=== PATIENT | female | born 1965 | race Caucasian/White ===

== ENCOUNTER → 2018-09-07 16:45 | Outpatient (CLI) | payer OTHER, SELFPAY ==
[2018-09-12 11:14] LABS: HPV Reflexed? NOT INDICATED
== END ==
PROVIDERS: Visit Provider Family Medicine
DX: Z12.4 Encounter for screening for malignant neoplasm of cervix (principal)
CPT/HCPCS: 88175; G0145

== ENCOUNTER → 2018-11-10 09:05 | Outpatient (CLI) | payer OTHER, SELFPAY ==
[2018-11-10 12:16] LABS: Absolute Neutrophil Count 4.9 X10^3/uL (2.0-7.7); Basophil# 0.03 X10^3/uL; Basophil% 0.4 % (0-1); Eosinophil# 0.13 X10^3/uL; Eosinophils% 1.6 % (0-5); Hematocrit 40.8 % (37-47); Mean Corp Hgb Conc 31.9 g/gl (32-36); Mean Corpuscular Hgb 28.1 pg (27.0-32.0); Mean Corpuscular Volume 88.3 fL (81-99); Mean Platelet Vol. 10.2 fl (6.2-12.0); Monocyte# 0.54 X10^3/uL; Monocyte% 6.8 % (0-10); Neutrophil # 4.88 X10^3/uL (2.7-7.7); Neutrophil % 61.1 % (47-70); Platelet Count 323 K/mm3 (150-450); RBC Distribution Width CV 13.1 % (11.6-14.6); RBC Distribution Width SD 42.1 fl (35.1-43.9); Red Blood Count 4.62 M/mm3 (4.2-5.4)
[2018-11-10 12:24] LABS: POSITIVE COUNT NO; POSITIVE DIFFERENTIAL NO; POSITIVE MORPHOLOGY NO
[2018-11-10 12:33] LABS: Vitamin D,25 Hydroxy 78.2 ng/mL (29.95-100.01)
[2018-11-10 12:38] LABS: AST(SGOT) 14 U/L (15-37); Alanine Aminotransfer ALT/SGPT 18 U/L (13-56); Albumin, Serum 3.5 g/dL (3.2-5.0); Alkaline Phosphatase 49 U/L (45-117); Anion Gap 9 (5-15); BUN 16 mg/dL (7-18); BUN/Creat Ratio 16.2 RATIO (10-20); Chloride 102 mmol/L (98-107); Cholesterol 214 mg/dL (200); Creatinine, Serum 0.99 mg/dL (0.55-1.02); EST Glomerular Filtration Rate 63 mL/min (>60); Est Glom Filt Rate - Afr Amer 76 mL/min (>60); Globulin 3.5 g/dL (2.2-4.2); Glucose 82 mg/dL (74-106); High Density Lipoprotein 82 mg/dL; Potassium 4.3 mmol/L (3.5-5.1); Sodium Level 140 mmol/L (136-145); T4 Free Direct 0.99 ng/dL (0.76-1.46); Thyroid Stim Hormone (TSH) 7.93 uIU/mL (0.358-3.74); Triglycerides 100 mg/dL; Very Low Density Lipoprotein 20 mg/dL (5-40)
== END ==
PROVIDERS: Visit Provider Family Medicine
DX: Z00.00 Encounter for general adult medical examination without abnormal findings (principal); E03.9 Hypothyroidism, unspecified; E78.5 Hyperlipidemia, unspecified; E55.9 Vitamin D deficiency, unspecified; R53.83 Other fatigue; Z51.81 Encounter for therapeutic drug level monitoring
CPT/HCPCS: 36415; 80053; 80061; 82306; 84439; 84443; 85025

== ENCOUNTER → 2019-03-05 | Outpatient (CLI) | payer OTHER, SELFPAY ==
[2019-03-05 16:03] LABS: Free T3 2.4 pg/mL (2.18-3.98); T4 Free Direct 1.23 ng/dL (0.76-1.46); Thyroid Stim Hormone (TSH) 1.23 uIU/mL (0.358-3.74)
== END | disposition home or self-care (01) ==
LOC: LAB.FUTURE 11:14
PROVIDERS: Family Provider Family Medicine; PCP Family Medicine; Visit Provider Family Medicine
DX: E03.9 Hypothyroidism, unspecified (principal)
CPT/HCPCS: 36415; 84439; 84443; 84481

== ENCOUNTER → 2019-05-28 | Outpatient (CLI) | payer OTHER, SELFPAY ==
[2019-05-28 12:51] LABS: Free T3 2.2 pg/mL (2.18-3.98); T4 Free Direct 0.99 ng/dL (0.76-1.46); Thyroid Stim Hormone (TSH) 7.47 uIU/mL (0.358-3.74)
== END | disposition home or self-care (01) ==
LOC: LAB.FUTURE 10:00
PROVIDERS: Family Provider Family Medicine; PCP Family Medicine; Visit Provider Family Medicine
DX: E03.9 Hypothyroidism, unspecified (principal)
CPT/HCPCS: 36415; 84439; 84443; 84481

== ENCOUNTER → 2019-07-25 | Outpatient (CLI) | payer OTHER, SELFPAY ==
[2019-07-25 18:04] LABS: Free T3 2.4 pg/mL (2.18-3.98); Thyroid Stim Hormone (TSH) 2.62 uIU/mL (0.358-3.74)
== END | disposition home or self-care (01) ==
LOC: LAB.FUTURE 15:54
PROVIDERS: Family Provider Family Medicine; PCP Family Medicine; Visit Provider Family Medicine
DX: E03.9 Hypothyroidism, unspecified (principal)
CPT/HCPCS: 36415; 84439; 84443; 84481

== ENCOUNTER → 2019-08-08 | Outpatient (CLI) | payer OTHER, SELFPAY | END | disposition home or self-care (01) | LOC: PSN 14:03 | PROVIDERS: Family Provider Family Medicine; PCP Family Medicine; Referring Provider Family Medicine; Visit Provider Family Medicine | DX: I47.9 Paroxysmal tachycardia, unspecified (principal) | CPT/HCPCS: 93225; 93226 ==

== ENCOUNTER → 2019-08-17 | Outpatient (CLI) | payer OTHER, SELFPAY ==
--- NOTE | 2019-08-17 13:42 | ECHOD_ITS ---
Reason For Study: Tachycardia Procedure This was a 2D Doppler, Color Flow transthoracic echocardiogram. Exam performed in department. Left Ventricle Normal size and thickness. The estimated ejection fraction is 65 %. Normal diastology for age. No regional wall motion abnormalities noted. Right Ventricle Normal size and thickness. Normal systolic function. Atria Normal left atrium. Normal right atrium. Normal atrial septum. Mitral Valve The mitral valve is structurally normal. No prolapse or stenosis seen. Trivial mitral valve insufficiency. Tricuspid Valve Normal tricuspid valve. Trivial tricuspid valve insufficiency. Right ventricular systolic pressure estimated to be 25 mmHg. Aortic Valve Normal aortic valve. Trisinus/trileaflet aortic valve. Pulmonic Valve Normal pulmonic valve. Great Vessels Normal aortic root. Normal arch. Normal inferior vena cava. Inferior vena cava collapse with sniff. Pericardium/Pleural No pericardial effusion. MMode/2D Measurements & Calculations LVIDd: 3.9 cm IVSd: 0.94 cm Ao root diam: 3.3 cm LVIDs: 2.1 cm LVPWd: 0.88 cm LA dimension: 3.5 cm RVDd: 3.6 cm FS: 45.4 % LAV(MOD-bp): 37.6 ml LA A4 area: 15.4 cm2 RA A4 area: 12.2 cm2 LAV(MOD-bp) Indexed: 20.7 ml/m2 LAV(MOD-sp2): 36.6 ml LAV(MOD-sp4): 39.1 ml Time Measurements MV dec time: 0.25 sec Doppler Measurements & Calculations MV E max jose miguel: 87.4 cm/sec Lat Peak E' Jose Miguel: 14.1 cm/sec Med Peak E' Jose Miguel: 12.3 cm/sec MV A max jose miguel: 66.3 cm/sec E/E' lat: 6.2 E/E' med: 7.1 MV E/A: 1.3 MV V2 max: 91.5 cm/sec MV P1/2t max jose miguel: 93.4 cm/sec Ao V2 max: 119.4 cm/sec MV max P.3 mmHg MV P1/2t: 107.7 msec Ao max P.7 mmHg MV V2 mean: 56.5 cm/sec MV dec slope: 254.0 cm/sec2 Ao V2 mean: 79.5 cm/sec MV mean P.5 mmHg MVA(P1/2t): 2.0 cm2 Ao mean P.8 mmHg MV V2 VTI: 27.5 cm Ao V2 VTI: 21.8 cm LV V1 max: 102.5 cm/sec PA V2 max: 119.4 cm/sec TR max jose miguel: 219.0 cm/sec LV V1 max P.2 mmHg TR max P.2 mmHg LV V1 mean P.4 mmHg LV V1 mean: 73.6 cm/sec LV V1 VTI: 22.7 cm Interpretation Summary The estimated ejection fraction is 65 %. Normal diastology for age. Trivial mitral valve insufficiency. Trivial tricuspid valve insufficiency. Right ventricular systolic pressure estimated to be 25 mmHg. There is no comparison study available. Ordering Physician: Tova Echevarria Referring Physician: Tova Echevarria Performed By: Brady Durant RCS
== END | disposition home or self-care (01) ==
LOC: CVS 13:39
PROVIDERS: Family Provider Family Medicine; PCP Family Medicine; Referring Provider Family Medicine; Visit Provider Family Medicine
DX: I47.9 Paroxysmal tachycardia, unspecified (principal)
CPT/HCPCS: 93306

== ENCOUNTER → 2019-10-16 13:32 | Outpatient (CLI) | payer OTHER, SELFPAY ==
[2019-09-26 10:48] VITALS: BMI 26.4
--- NOTE | 2019-10-16 13:33 | STEWCON_ITS ---
Reason For Study: PALPITATIONS Stress Results Protocol: Pro Protocol WITH DEFINITY Maximum Predicted HR: 168 bpm Target HR: 143 bpm % Maximum Predicted HR: 102 % DurationHeart Rate Stage (mm:ss) (bpm) BP Comment BASELINE 72 122/901 CC DEFINITY STAGE 1 3:00 116 142/86 STAGE 2 3:00 126 142/74SLIGHT SOB STAGE 3 3:00 153 158/70 STAGE 4 1:00 171 / 1 CC DEFINITY RECOVERY 84 118/84 Stress Duration: 10:00 mm:ss Maximum Stress HR: 171 bpm METS: 13 Baseline Echocardiogram Findings Stress Echo Wall motion Data Resting WM Intermediate WM Stress WM Resting Wall Motion Wall Motion Stress All segments Normal. All segments Hyperkinetic. Ejection Fraction 60 %. Ejection Fraction 70 %. Stress Results Heart rate response: Appropriate Blood pressure response to exercise: Resting hypertension-appropriate response Arrhythmias: Rare PVC during recovery Functional capacity: Good Stopped secondary to: Dyspnea. EKG Data The baseline ECG displays normal sinus rhythm. Peak exercise ECG: No obvious ECG changes. Symptoms with Stress No complaint of chest discomfort during exercise or recovery. Interpretation Summary Contrast injection performed Negative (adequate) stress echocardiogram Ordering Physician: Greyson Jacobson Referring Physician: Greyson Jacobson Performed By: Yoli Brandon RDCS
== END ==
PROVIDERS: Family Provider Family Medicine; PCP Family Medicine; Referring Provider Internal Medicine Cardiovascular Disease; Visit Provider Internal Medicine Cardiovascular Disease
DX: R00.2 Palpitations (principal); E03.9 Hypothyroidism, unspecified; I47.1 Supraventricular tachycardia
CPT/HCPCS: 93017; 93350; Q9957; A4216; C8928

== ENCOUNTER → 2019-10-29 10:07 | Outpatient (CLI) | payer OTHER, SELFPAY ==
[2019-09-26 10:48] VITALS: BMI 26.4
[2019-10-29 12:16] LABS: Absolute Lymphocyte Count 1.64 X10^3/uL (0.83-4.51); Absolute Neutrophil Count 3.5 X10^3/uL (2.0-7.7); Basophil# 0.03 X10^3/uL; Basophil% 0.5 % (0-1); Eosinophil# 0.07 X10^3/uL; Eosinophils% 1.2 % (0-5); Hematocrit 40.9 % (37-47); Hemoglobin 13.1 g/dL (12.0-15.0); Lymphocyte # 1.64 X10^3/ul (4.0); Lymphocyte % 29.1 % (19-41); Mean Corpuscular Hgb 28.4 pg (27.0-32.0); Mean Corpuscular Volume 88.7 fL (81-99); Mean Platelet Vol. 10.4 fl (6.2-12.0); Monocyte# 0.38 X10^3/uL; Monocyte% 6.7 % (0-10); NRBC Flagged by Analyzer 0 % (0-5); Neutrophil # 3.51 X10^3/uL (2.7-7.7); Neutrophil % 62.5 % (47-70); Platelet Count 293 K/mm3 (150-450); RBC Distribution Width CV 12.6 % (11.6-14.6); Red Blood Count 4.61 M/mm3 (4.2-5.4); White Blood Count 5.6 K/mm3 (4.4-11.0)
[2019-10-29 12:45] LABS: AST(SGOT) 16 U/L (15-37); Alanine Aminotransfer ALT/SGPT 17 U/L (13-56); Albumin, Serum 3.6 g/dL (3.2-5.0); Alkaline Phosphatase 53 U/L (45-117); Anion Gap 4 (5-15); BUN 12 mg/dL (7-18); BUN/Creat Ratio 11.5 RATIO (10-20); Bilirubin, Direct 0.07 mg/dL (0.00-0.30); Calcium,Total 8.7 mg/dL (8.5-10.1); Chloride 101 mmol/L (98-107); Cholesterol 201 mg/dL (200); Creatinine, Serum 1.04 mg/dL (0.55-1.02); EST Glomerular Filtration Rate 59 mL/min (>60); Est Glom Filt Rate - Afr Amer 71 mL/min (>60); Free T3 2.6 pg/mL (2.18-3.98); Globulin 3.7 g/dL (2.2-4.2); Glucose 88 mg/dL (74-106); High Density Lipoprotein 81 mg/dL; Potassium 4.3 mmol/L (3.5-5.1); Protein, Total 7.3 g/dL (6.4-8.2); Sodium Level 133 mmol/L (136-145); T4 Free Direct 1.16 ng/dL (0.76-1.46); Thyroid Stim Hormone (TSH) 1.93 uIU/mL (0.358-3.74); Triglycerides 121 mg/dL; Very Low Density Lipoprotein 24 mg/dL (5-40)
== END ==
PROVIDERS: Family Provider Family Medicine; PCP Family Medicine; Visit Provider Internal Medicine Cardiovascular Disease
DX: E78.00 Pure hypercholesterolemia, unspecified (principal); R00.2 Palpitations; I47.1 Supraventricular tachycardia; E03.9 Hypothyroidism, unspecified
CPT/HCPCS: 36415; 80048; 80061; 80076; 83735; 84439; 84443; 84481; 85025

== ENCOUNTER → 2019-12-10 09:55 | Outpatient (CLI) | payer OTHER, SELFPAY ==
[2019-11-15 15:24] VITALS: BMI 26.8
[2019-12-10 12:57] LABS: Anion Gap 4 (5-15); BUN 12 mg/dL (7-18); BUN/Creat Ratio 12.1 RATIO (10-20); Calcium,Total 8.9 mg/dL (8.5-10.1); Chloride 102 mmol/L (98-107); Creatinine, Serum 0.99 mg/dL (0.55-1.02); EST Glomerular Filtration Rate 63 mL/min (>60); Est Glom Filt Rate - Afr Amer 76 mL/min (>60); Glucose 94 mg/dL (74-106); Potassium 3.7 mmol/L (3.5-5.1); Sodium Level 135 mmol/L (136-145)
== END ==
PROVIDERS: PCP Family Medicine; Visit Provider Internal Medicine Cardiovascular Disease
DX: I47.1 Supraventricular tachycardia (principal); R00.2 Palpitations
CPT/HCPCS: 36415; 80048

== ENCOUNTER → 2023-02-11 | Outpatient (CLI) | payer OTHER, SELFPAY ==
[2023-02-18 20:54] LABS: HPV Reflexed? NOT INDICATED
== END | disposition home or self-care (01) ==
PROVIDERS: PCP Family Medicine; Visit Provider Family Medicine
DX: Z12.4 Encounter for screening for malignant neoplasm of cervix (principal)
CPT/HCPCS: 88175; G0145

== ENCOUNTER → 2023-04-07 | Outpatient (CLI) | payer OTHER, SELFPAY ==
--- NOTE | 2023-04-07 15:35 | BI_ITS ---
MAMMOGRAPHY - BILATERAL SCREENING REASON FOR EXAM: Female, 57 years old. Routine annual screening examination. PERTINENT HISTORY: Grandmother with breast cancer. TECHNIQUE: Digital bilateral breast dora (3D mammographic acquisition) in the CC and MLO projections. 2-D mediolateral oblique (MLO) and craniocaudad (CC) views of both breasts were obtained. CAD: Full Field Digital Mammography with Computer Added Detection was performed. COMPARISON: Screening mammogram from 06/13/2017, 05/14/2016. FINDINGS: Breast Composition: The breasts are heterogeneously dense, which may obscure small masses. There are no dominant masses or suspicious calcifications. Stable inverted left nipple. No other significant abnormalities are identified. There has been no significant change since the prior study. BI/SCRN MAMM (CAD)W/DORA BILAT IMPRESSION: Negative screening mammogram. Examination is stable since June 13, 2017. Annual followup mammogram recommended. (A) ASSESSMENT CATEGORY: BIRADS Category 2: Benign. A letter regarding these results will be sent to the patient by the facility within 30 days. Approximately 10% of breast cancers are not detected by mammography. A normal mammogram should not delay biopsy of a clinically suspicious abnormality. Electronically Signed: Benigno Goldman DO at 15:16 EDT ,
== END | disposition home or self-care (01) ==
PROVIDERS: PCP Family Medicine; Referring Provider Family Medicine; Visit Provider Family Medicine
DX: Z12.31 Encounter for screening mammogram for malignant neoplasm of breast (principal)
CPT/HCPCS: 77063; 77067

== ENCOUNTER → 2023-05-28 | Outpatient (CLI) | payer OTHER, SELFPAY ==
[2023-05-28 09:12] LABS: Free T3 2.5 pg/mL (2.18-3.98); T4 Free Direct 1.05 ng/dL (0.76-1.46); Thyroid Stim Hormone (TSH) 6.96 uIU/mL (0.358-3.74)
== END | disposition home or self-care (01) ==
LOC: LAB 07:39
PROVIDERS: PCP Family Medicine; Referring Provider Family Medicine; Visit Provider Family Medicine
DX: E03.9 Hypothyroidism, unspecified (principal)
CPT/HCPCS: 36415; 84439; 84443; 84481

== ENCOUNTER → 2023-09-05 | Outpatient (CLI) | payer OTHER, SELFPAY ==
[2023-09-05 13:38] LABS: Free T3 2.3 pg/mL (2.18-3.98); T4 Free Direct 1.03 ng/dL (0.76-1.46); Thyroid Stim Hormone (TSH) 2.66 uIU/mL (0.358-3.74)
== END | disposition home or self-care (01) ==
LOC: LAB 12:51
PROVIDERS: PCP Family Medicine; Referring Provider Family Medicine; Visit Provider Family Medicine
DX: E03.9 Hypothyroidism, unspecified (principal)
CPT/HCPCS: 36415; 84439; 84443; 84481

== ENCOUNTER 2023-12-26 17:52 | Outpatient (RCR) | payer OTHER, SELFPAY ==
--- NOTE | 2023-12-26 19:38 | HP.PTEVAL ---
Patient's Visit Information Visit Information Visit Information: DEBBIE BELCHER is a 58 year old F referred to Physical Therapy by Dr. Tito Reyna DO with a diagnosis of OTHER SHOULDER LESION ,RIGHT SHOULDER. Date of Evaluation: 12/26/23 Physical Therapist: Abdullahi Lerner, PT, Cert MDT, OCS Visit Plan Frequency: 2x /Week Duration: 4 Weeks Plan: PT INTERVTIONS RTC/SCAPULAR STRENGTHENING ,ECCENTRICS RTC ,POSTURAL EX'S AND MODALTIES FOR PAIN Subjective Subjective: This 58 y/o female presents to physical therapy with right shoulder pain. Patient has had shoulder pain since Trae doing planks. Symptoms progressively worse with general activities overuse. Initially seen family DR recommended naproxen .Seen DR Reyna recommended PT no diagnostics . Patient located pain lateral deltoid described as ache adn sore. Symptoms worse daily activities ,OH activities lifting reaching back. Alleviating factors rest . Denies parestehesia/tingling-. Patient condition affects QOL and function. Patient goals to decrease pain. SOCIAL: VOCATION: [employer] Pain Right Shoulder: Pain Intensity (Out of 10): 4 Pain Intensity Range: 10 Objective Objective: POSTURE: mild forward posture PALPATION: tender AC joint lateral NEURO: denies paresthesia/tinging ,reflexes C5-6-7 3/3 AROM: right shoulder flexion 140 degrees ,abduction 130 degrees ,ER 90 , IR L1 MMT: ( peak force) infraspinatus 9.8 ,subscapularis 15.7 ,anterior deltoid 5.4 ,8.8 5.4 Special Tests R Shoulder Lift Off Test - Subscapular Tear: Negative R Shoulder Drop Sign - IS Test: Negative R Shoulder Empty Can - SS: Positive R Shoulder Belly Press - SupScap: Negative R Shoulder Neer - Impingement: Positive R Shoulder Moore Darius - Impingement: Positive R Shoulder Speeds Test - Labrum/Biceps: Negative R Shoulder Shrug Sign - OA/Adhesive Capsulitis: Negative Balance/Special Test Scores Quick DASH Score: 38.6350 Goals Goal 1:: Patient to be I with HEP for shoulder Goal Time Frame: 4-6 Weeks Goal 2:: Patient to improve AROM shoulder flexion and abduction by 160 degrees for ADLS and housework tasks Goal Time Frame: 4-6 Weeks Goal 3:: Patient to demonstrate 70% improvement with improved function and less pain Goal Time Frame: 4-6 Weeks Goal 4:: Patient to improve peak force RTC and deltoid y 10 # to improve strength and function Goal Time Frame: 4-6 Weeks Goal 5:: Patient to improve quick dash by 5 points or > to improve QOL and function Goal Time Frame: 4-6 Weeks Rehabilitation Potential Physical Therapy Diagnosis: Patient has right shoulder tendonitis /tendinopathy with pain with motion ,weakness RTC , impairs function and activities above 90 degrees for housework tasks thus benefit from skilled PT Rehabilitation Potential: Good Anticipated Interventions Patient/Client Instruction: Educate patient on: Condition and Plan of Care For the Purpose of:: To decrease pain, To increase ROM, To improve muscle performance and motor function, To improve ability to perform ADL's, To increase tolerance to activity/condition/position, To improve performance and independence with ADL's, To improve ability of physical actions for home/community/work/leisure, To improve health of tissue, To decrease soft tissue restriction, To increase flexibility/ROM, To reduce risk of recurrence and To prevent re-injury Therapeutic Exercise to Include: Strength training, Postural training, Flexibilty training, Active ROM and Scapular Strength/Stabilization Comment: RTC For the Purpose of:: To decrease pain, To increase ROM, To improve muscle performance and motor function, To improve ability to perform ADL's, To increase tolerance to activity/condition/position, To improve ability of physical actions for home/community/work/leisure, To improve health of tissue, To decrease soft tissue restriction, To increase flexibility/ROM, To prevent re-injury and To improve tolerance to ADL's TENS: Yes IF ES: Yes Cryotherapy (ice pack, ice massage): Yes Thermo therapy (hot pack): Yes Ultrasound (thermal/non thermal): Yes For the Purpose of:: To decrease pain, To increase ROM, To improve nutrient delivery to tissue, To increase oxygenation perfusion, To improve health of tissue and To decrease soft tissue restriction Text: Thank you for the opportunity to evaluate your patient. For Medicare and Medicare HMO plans, please review the plan of care and approve it. It will need to be FAXED BACK to us at [phone] for Medicare purposes. For Medicare only, by signing this I certify the plan of care. Please let me know if there are questions or concerns regarding this plan of care. Physician Signature: Date:
--- NOTE | 2024-02-27 11:28 | HP.PTDCNRP_ITS ---
Patient Information Patient Information: DEBBIE BELCHER was seen in my office for initial evaluation on 12/26/23. The following Plan of Care was established for this patient: POC Established Initial Frequency: 2x /Week Initial Duration: 4 Weeks Anticipated Interventions Patient/Client Instruction: Educate patient on: Condition and Plan of Care For the Purpose of:: To decrease pain, To increase ROM, To improve muscle performance and motor function, To improve ability to perform ADL's, To increase tolerance to activity/condition/position, To improve performance and in dependence with ADL's, To improve ability of physical actions for home/community/work/leisure, To improve health of tissue, To decrease soft tissue restriction, To increase flexibility/ROM, To reduce risk of recurrence and To prevent re-injury Therapeutic Exercise to Include: Strength training, Postural training, Flexibilty training, Active ROM and Scapular Strength/Stabilization For the Purpose of:: To decrease pain, To increase ROM, To improve muscle performance and motor function, To improve ability to perform ADL's, To increase tolerance to activity/condition/position, To improve ability of physical actions for home/community/work/leisure, To improve health of tissue, To decrease soft tissue restriction, To increase flexibility/ROM, To prevent re-injury and To improve tolerance to ADL's TENS: Yes IF ES: Yes Cryotherapy (ice pack, ice massage): Yes Thermo therapy (hot pack): Yes Ultrasound (thermal/non thermal): Yes For the Purpose of:: To decrease pain, To increase ROM, To improve nutrient delivery to tissue, To increase oxygenation perfusion, To improve health of tissue and To decrease soft tissue restriction Last Seen Last Seen: This patient was last seen in our office . Pertinent comments regarding their Physical therapy will appear below: Patient seen for PT for right shoulder pain evaluation and HEP At this point I will be discontinuing this patient from physical therapy. I would be happy to see this patient again in the future if found appropriate by the physician. Thank you! Abdullahi Lerner, PT, Cert MDT, OCS Balance/Gait/Functional tests Balance/Special Test Scores Quick DASH Score: 38.6317
== END 2023-12-26 19:00 | disposition home or self-care (01) ==
LOC: PT 17:52
PROVIDERS: PCP Family Medicine; Visit Provider Orthopaedic Surgery
DX: M75.81 Other shoulder lesions, right shoulder (principal)
CPT/HCPCS: 97110; 97161

== ENCOUNTER → 2023-12-27 | Outpatient (CLI) | payer OTHER, SELFPAY ==
--- NOTE | 2023-12-27 12:26 | BI_ITS ---
MAMMOGRAPHY - BILATERAL DIAGNOSTIC REASON FOR EXAM: Female, 58 years old. Left bloody nipple discharge for 5 days. Chronic left nipple inversion. PERTINENT HISTORY: Grandmother with breast cancer. TECHNIQUE: Digital bilateral breast juaquin (3D mammographic acquisition) in the CC and MLO projections. 2-D mediolateral oblique (MLO) and craniocaudad (CC) views of both breasts were obtained. CAD: Full Field Digital Mammography with Computer Added Detection was performed. COMPARISON: Comparison is made with prior study dated April 07, 2023 and June 13, 2017. FINDINGS: Breast Composition: The breasts are heterogeneously dense, which may obscure small masses. There are no dominant masses or suspicious calcifications. Stable inversion of the left nipple complex. No other significant abnormalities are identified. There has been no significant change since the prior study. BI/DIAG MAMM W/CAD, BILAT IMPRESSION: Stable bilateral diagnostic mammogram. With the patient''s history of a left bloody nipple discharge, correlation with ultrasound is recommended. ASSESSMENT CATEGORY: BIRADS Category 0: Incomplete. Need additional imaging evaluation. A letter regarding these results will be sent to the patient by the facility within 30 days. Approximately 10% of breast cancers are not detected by mammography. A normal mammogram should not delay biopsy of a clinically suspicious abnormality. Electronically Signed: Ney Durant MD at 13:34 EST ,
--- NOTE | 2023-12-27 13:14 | US_ITS ---
STUDY: ULTRASOUND BREAST - LEFT REASON FOR EXAM: Female, 58 years old. Nipple discharge in the left breast. TECHNIQUE: Axial and longitudinal images of the LEFT breast were performed with a high resolution ultrasound transducer. # OF IMAGES: 22 COMPARISON: Comparison is made with prior mammogram done earlier today. FINDINGS: LEFT Breast: The retroareolar region of the breast was examined with ultrasound. There is a 1 cm x 0.9 cm x 0.6 cm irregular nodule in the retroareolar region. Biopsy recommended. US/Breast Limited Unilateral IMPRESSION: 1 cm x 0.9 cm x 0.6 cm irregular nodule in the retroareolar region of the left breast. Biopsy recommended. ASSESSMENT CATEGORY: BIRADS Category 4: Suspicious - Biopsy Should Be Considered. A letter regarding these results will be sent to the patient by the facility within 30 days. Electronically Signed: Ney Durant MD at 14:23 EST ,
== END | disposition home or self-care (01) ==
LOC: OPBI 12:25
PROVIDERS: PCP Family Medicine; Referring Provider Family Medicine; Visit Provider Family Medicine
DX: N64.52 Nipple discharge (principal); N64.59 Other signs and symptoms in breast
CPT/HCPCS: 76642; 77062; 77066; G0279

== ENCOUNTER → 2024-01-02 | Outpatient (CLI) | payer OTHER, SELFPAY ==
--- NOTE | 2024-01-02 13:00 | BRBX_PTH ---
PATHOLOGY RESULTS PATIENT: DEBBIE BELCHER [facility] U#:[id number] AGE/SX: 58/F ROOM: RE01/02/[address]: Dr. Darek Campos MD : 1965 BED: DIS: 01/02/2024 SPEC #: [id number] RECD: 01/03/24 07:39 STATUS: CECY OROPEZA #: [id number] ROLAND: 01/02/24 13:[address]: Darek Campos DEPT: SURGICAL PATHOLOGY RECD BY: Swapna Root ENTERED: 01/03/24 07:40 SP TYPE: BREAST BX OTHR DR: Dr. Ciara Ellis, DO Tissues: Breast, NOS Procedures: Surgery Specimen Level IV HEADER OPERATION: Left breast biopsy PRE-OP DIAGNOSIS: Left breast mass TISSUE SUBMITTED: Left breast tissue MICROSCOPIC DIAGNOSIS Left breast tissue, core biopsy: A few minute fragments of benign breast tissue with rare fragments suggestive of intraductal papilloma. Blood clots. Negative for atypia or malignancy. See comment. DAVID:francisco 01/04/2024 COMMENT The specimen predominantly consists of blood clots. Correlation with clinical, radiologic findings and appropriate follow up are necessary. Case has been reviewed in consultation with Dr. Edwards who concurs with the above diagnosis. IDC:AM MICROSCOPIC DESCRIPTION Slides are reviewed. GROSS DESCRIPTION Received in fixative is one container labeled with the patient's name and designated left breast. The specimen consists of multiple irregular fragments of hemorrhagic soft tissue mixed with blood clot that in aggregate measure 2.5 x 0.5 x 0.1 cm. The specimen is totally submitted in one cassette. / DAVID:francisco 01/03/2024 TC:5 CPT: 56721
== END | disposition home or self-care (01) ==
LOC: LABSPEC 15:14
PROVIDERS: PCP Family Medicine; Referring Provider Surgery; Visit Provider Surgery
DX: N63.20 Unspecified lump in the left breast, unspecified quadrant (principal)
CPT/HCPCS: 88305

== ENCOUNTER 2024-01-25 06:29 | Day surgery (SDC) | payer OTHER, SELFPAY ==
--- NOTE | 2024-01-25 | IMM_PTH ---
PATHOLOGY RESULTS PATIENT: DEBBIE BELCHER LOC: [facility] [place] U#:[id number] AGE/SX: 58/F ROOM: RE01/25/[address]: Dr. Darek Campos MD : 1965 BED: DIS: 01/25/2024 SPEC #: [id number] RECD: 01/30/24 14:25 STATUS: CECY REQ #: [id number] ROLAND: 01/25/24 00:[address]: Darek Campos DEPT: IMMUNOHISTOCHEMISTRY RECD BY: Sheree Davis ENTERED: 01/30/24 14:26 SP TYPE: IMMUNO OTHR DR: Dr. Ciara Ellis DO Tissues: Left breast, NOS Procedures: CALPONIN-1 (add) CK5-6 (add) CK8 (add) E-CAD (add) Smooth Muscle Actin P40 (add) PHYSICIAN & INSTITUTION [place] [id number] SPECIMEN INFORMATION: Tissue Source: Left central duct Clinical Info: Left breast mass Specimen Number: [id number] #8 CPT code: 50538, 31305 x5 METHODOLOGY: Deparaffinized sections of prefer/formalin-fixed tissue or PAP/DQ stained slides are incubated with monoclonal/polyclonal antibodies/oligonucleotide probes. Localization is made via biotin free immunoperoxidase method. Appropriate controls are performed and reacted as expected. Results on target cell population are indicated in the following table: RESULTS: ANTIBODY / CLONE RESULT Block 8 P40 (BC28) positive, basal layer Actin (1A4) positive, basal layer Calponin-1 (WN543K) positive, basal layer CK5-6 (D5 & 1684) positive, basal layer E-Cad (ECH-6) positive CK8 (66qzchW16) positive These tests were developed and their performance characteristics determined by [facility]. They may not have been cleared or approved by the U.S. Food and Drug Administration. The FDA has determined that such clearance or approval is not necessary. The above immunohistochemical/dualISH markers are ordered and reviewed by the Pathologist. INTERPRETATION: Left central duct, excision: Intraductal hyperplasia with focal atypia. AM:francisco 01/31/2024 Case has been reviewed in consultation with Dr. Perez who concurs with the above diagnosis. IDC:DAVID
--- NOTE | 2024-01-25 06:35 | PCM.HP.BLA ---
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 Is patient in pain?: No Allergies No Known Allergies Allergy (Verified 01/10/24 13:55) Medications sertraline 50 mg tablet 75 mg PO DAILY 09/14/19 [History Confirmed 01/10/24] cholecalciferol (vitamin D3) 50 mcg (2,000 unit) capsule 2,000 unit PO DAILY 11/15/19 [History Confirmed 01/10/24] levothyroxine 100 mcg tablet 100 mcg PO DAILY 12/22/21 [History Confirmed 01/10/24] norgestimate-ethinyl estradiol 0.18 mg/0.215mg/0.25mg-35 mcg(28)tablet (Tri Femynor) 1 tab PO DAILY 12/22/21 [History Confirmed 01/10/24] diltiazem HCl 120 mg capsule,extended release 24 hr 120 mg PO DAILY #90 caps 04/06/23 [Rx Confirmed 01/10/24] naproxen 500 mg tablet 500 mg PO 12/19/23 [History Confirmed 01/10/24] Subjective Details: Patient is here following up after breast biopsy. She has no complaints. Objective Details: The breast does have some ecchymosis medially. Coding Level of Care Code Off vis,est,level 2 Diagnoses Breast mass, left N63.20 [facility] Medical History (Updated 01/02/24 @ 13:[address] Darek Campos MD) Ectopic atrial tachycardia Hypothyroidism Palpitations Surgical History History of dilatation and curettage History of tonsillectomy Family History Father Colon cancerGrandmother Breast cancerMother Hypertension Social History Smoking Status: Former smoker alcohol intake: current details: occasional substance use type: does not use caffeine: Yes Type: carbonated beverages Number of servings: 1 and coffee Number of servings: 2 Assessment and Plan (No Qualifiers) Assessment and Plan (1) Breast mass, left: Status: Acute Plan: The patient had a left breast retroareolar mass. It was biopsied in the office last week and was found to be a papilloma. I recommended central ductal excision to remove the entire papilloma. I discussed the procedure in detail as well as the risks including but not limited to bleeding, infection, need for further surgery. Patient understands the risks and is willing to proceed. Darek Campos MD Pager: [facility] [address] [place] [address] [address] [place] [address] Office: I have examined the patient and the H&P has been reviewed. There are no clinical changes since date of exam.
[2024-01-25 07:03] VITALS: BP 101/73; PULSE 96; RESP 14; TEMP 37.4; O2SAT 99; BMI 28.9
[2024-01-25 07:15] LABS: Internal QC Validated? YES +Cl - CLEAR BKGD; Pregnancy, Urine Negative Negative
[2024-01-25] MEDS: Lactated Ringers 1,000 ML 15 ML IV (07:22)
[2024-01-25] MEDS: Cefazolin 2 GM in 0.9% Normal Saline (100mL Bag) 100 ML IV (07:44)
[2024-01-25] MEDS: Bupivacaine Mpf 0.5% 30 ML VIAL (07:58)
--- NOTE | 2024-01-25 08:00 | BREAST_PTH ---
PATHOLOGY RESULTS PATIENT: DEBBIE [place]CHER [place] [facility] [place][id number] AGE/SX: 58/F ROOM: RE01/25/[address]: Dr. Darek Campos MD : 1965 BED: DIS: 01/25/2024 SPEC #: [id number] RECD: 01/25/24 13:15 STATUS: CECY OROPEZA #: [id number] ROLAND: 01/25/24 08:[address]: Darek Campos DEPT: SURGICAL PATHOLOGY RECD BY: Swapna Root ENTERED: 01/25/24 13:17 SP TYPE: BREAST OTHR DR: Dr. Ciara Ellis, DO Tissues: Left breast, NOS Procedures: Surgery Specimen Level IV HEADER OPERATION: Excision, Left breast central ductal PRE-OP DIAGNOSIS: Left breast mass TISSUE SUBMITTED: Left central ductal excision MICROSCOPIC DIAGNOSIS Left central ductal lesion, excision; Florid intraductal hyperplasia with focal atypia. Fibrocystic change. Intraductal papillomatosis. Focal involutional change. Fibrosis, fat necrosis and reactive change consistent with previous biopsy. Banal microcalcifications. See comment. BRENDA/ 01/30/2024 COMMENT Immunohistochemistry ([id number]) supports the above diagnosis. Reference is made to the patient's previous biopsy ([id number]) in which intraductal papilloma was suspected. Case has been reviewed in consultation with Dr. Perez who concurs with the above diagnosis. IDC:DAVID MICROSCOPIC DESCRIPTION Slides are reviewed. GROSS DESCRIPTION Received in fixative is one container labeled with the patient's name and designated Left central ductal excision. The specimen consists of a piece of fibroadipose tissue measuring 5.0 x 4.0 x 2.0 cm. No orientation is provided. The specimen is inked, serially sectioned and reveals rangel-yellow adipose cut surfaces with focal rangel-white fibrous area with focal area of hemorrhage. No obvious mass is identified. The entire specimen is submitted from one end to the other end in 12 cassettes. Sections will be submitted after additional fixation. DAVID/ 01/26/2024 TC:5 CPT:84004
[2024-01-25] MEDS: BACITRACIN/POLYMYXIN B 15 GM Tube 1 APPLIC (08:18)
[2024-01-25 08:30] VITALS: BP 101/73; BP 114/64; PULSE 77; RESP 16; TEMP 36.3; O2SAT 96
[2024-01-25 08:35] VITALS: BP 101/73; BP 119/58; PULSE 87; RESP 16; O2SAT 95
[2024-01-25 08:40] VITALS: BP 101/73; BP 117/75; PULSE 76; RESP 16; TEMP 36.3; O2SAT 95
--- NOTE | 2024-01-25 08:41 | PCM.OPRPT ---
Report of Operation Pre-Operative Diagnosis: Left breast intraductal papilloma Post-Operative Diagnosis: Same Surgery/Procedure Performed:: Left breast central ductal excision Type of Anesthesia: General/Regional Specimen's removed: Left central ductal excision Estimated Blood Loss (mL): 5 Description of Procedure: Patient was brought back to the operating room and general anesthesia induced. The left breast was prepped and draped in usual sterile fashion. A curvilinear incision was marked at the areolar margin laterally. The incision area was injected with local anesthetic. Next an incision was made with a scalpel. Flap was raised medially using electrocautery to free the nipple from the ducts. The ductal structure was dissected free and extracted and sent for pathology. The cavity was irrigated and suctioned dry and hemostasis was obtained using electrocautery. Next a 3-0 chromic was used to extrovert the nipple. There was some cracking of the epidermis. The nipple appeared symmetric to the other side and it appeared pink with no signs of ischemia. Next the skin incision was closed with interrupted 3-0 Vicryl sutures and a running 4-0 Monocryl suture. Dermabond was applied. Some bacitracin and a Telfa was placed over the nipple as there was some epidermal cracking from extraverting it. Patient was awoken and taken to PACU in stable condition and tolerated the procedure well. Admit VTE Documentation VTE Mechan Device Prophylaxis: SCD's
--- NOTE | 2024-01-25 08:59 | DCINST_ITS ---
Discharge Instructions Procedure Breast Surgery Diet Discharge Diet: No restrictions Activity Discharge Activity: May Not Drive (for 2-3 days or while taking narcotic pain medications.) and May Shower (tomorrow) Additional Activity Instructions:: Apply bacitracin to nipple and cover with nonstick gauze until healed. Take Ibuprofen and Tylenol for pain, Oxycodone for breakthrough pain Dressing / Incision Call your doctor if your incision/area has: Continuous Slow Oozing and Increased Redness Call your doctor if you observe: Fever of 101 or Higher Suture Line Care: Avoid Pulling/Pushing and Avoid Pinching/Bending Change Dressing in: 1 day Cleanse incision/area with: Soap & Water Follow Up Care Please Follow Up With: Darek Campos MD When: Please call to schedule 1 week follow up appointment. [phone] Test Results: Test results from this visit will be discussed in further detail at your follow- up appointment, if applicable. Discharge Plan Admission Attending Provider: Darek Campos Primary Care Provider: Ciara Ellis Discharge Orders/Prescriptions Prescriptions: New oxycodone 5 mg tablet 5 - 10 mg PO Q6H PRN (Reason: pain) 5 Days Qty: 15 0RF No Action cholecalciferol (vitamin D3) 50 mcg (2,000 unit) capsule 6,000 unit PO DAILY sertraline 50 mg tablet 75 mg PO DAILY levothyroxine 100 mcg tablet 150 mcg PO DAILY norgestimate-ethinyl estradiol [Tri Femynor] 0.18/0.215/0.25 mg-35 mcg (28) tablet 1 tab PO DAILY cetirizine [24Hour Allergy] 10 mg tablet 10 mg PO DAILY diltiazem HCl 120 mg capsule,extended release 24hr 120 mg PO DAILY Qty: 90 3RF Referrals / Follow Up: Ciara Ellis DO [Primary Care Provider] - Disposition Disposition (needs filled in before D/C Order can be placed): Home, Self Care
[2024-01-25] MEDS: Acetaminophen 325 MG Tablet 650 MG PO (09:03)
[2024-01-25 09:19] VITALS: BP 101/73
== END 2024-01-25 09:25 | disposition home or self-care (01) ==
LOC: SDC 06:30 → AC 06:31
PROVIDERS: Anesthesiology; PCP Family Medicine; Referring Provider Surgery; Visit Provider Surgery
PROC: (CPT 19120; principal; 2024-01-25 07:45)
DX: D24.2 Benign neoplasm of left breast (principal); F41.9 Anxiety disorder, unspecified; E03.9 Hypothyroidism, unspecified; Z87.891 Personal history of nicotine dependence; Z79.899 Other long term (current) drug therapy
CPT/HCPCS: 19120; 00400; 81025; 88305; 88341; 88342; J7120; J2405

== ENCOUNTER → 2024-02-06 | Outpatient (CLI) | payer OTHER, SELFPAY ==
--- NOTE | 2024-02-06 12:23 | US_ITS ---
STUDY: ULTRASOUND BREAST - RIGHT REASON FOR EXAM: Female, 58 years old. Nipple discharge in the right breast. TECHNIQUE: Axial and longitudinal images of the RIGHT breast were performed with a high resolution ultrasound transducer. # OF IMAGES: 36 COMPARISON: Comparison is made with prior mammogram dated December 27, 2023. FINDINGS: RIGHT Breast: The retroareolar region of the right breast was examined with ultrasound. There is a 1 mm x 1 mm x 1 mm echogenic structure within a dilated retroareolar duct. A similar appearing 4 mm x 4 mm x 3 mm nodule is also seen within a dilated duct suggestive of papillomas. US/Breast Limited Unilateral IMPRESSION: Findings suggestive papillomas in the retroareolar ducts of the right breast as described. ASSESSMENT CATEGORY: BIRADS Category 2: Benign. A letter regarding these results will be sent to the patient by the facility within 30 days. Electronically Signed: Ney Durant MD at 13:03 EDT ,
== END | disposition home or self-care (01) ==
LOC: OPUS 12:23
PROVIDERS: PCP Family Medicine; Referring Provider Surgery; Visit Provider Surgery
DX: R92.8 Other abnormal and inconclusive findings on diagnostic imaging of breast (principal); D36.9 Benign neoplasm, unspecified site; N64.52 Nipple discharge
CPT/HCPCS: 76642

== ENCOUNTER 2024-02-14 05:54 | Day surgery (SDC) | payer OTHER, SELFPAY ==
--- NOTE | 2024-02-14 | IMM_PTH ---
PATIENT: DEBBIE BELCHER [place] [facility] [place][id number] AGE/SX: 58/F ROOM: RE02/14/[address]: Dr. Darek Campos MD : 1965 BED: DIS: 02/14/2024 SPEC #: [id number] RECD: 02/21/24 07:30 STATUS: CECY REMika #: [id number] ROLAND: 02/14/24 00:[address]: Darek Campos DEPT: IMMUNOHISTOCHEMISTRY RECD BY: Sheree Davis ENTERED: 02/21/24 07:31 SP TYPE: IMMUNO OTHR DR: Dr. Ciara Ellis DO Tissues: Right breast, NOS Procedures: CALPONIN-1 (add) CK8 (add) E-CAD (add) Pankeratin (initial) P40 (add) PHYSICIAN & INSTITUTION [place] [id number] SPECIMEN INFORMATION: Tissue Source: Right breast central duct Clinical Info: Atypical ductal hyperplasia right breast, intraductal papilloma Specimen Number: [id number] #[id number] CPT code: 25332, 14381 x4 METHODOLOGY: Deparaffinized sections of prefer/formalin-fixed tissue or PAP/DQ stained slides are incubated with monoclonal/polyclonal antibodies/oligonucleotide probes. Localization is made via biotin free immunoperoxidase method. Appropriate controls are performed and reacted as expected. Results on target cell population are indicated in the following table: RESULTS: ANTIBODY / CLONE RESULT Block 8 E-Cad (ECH-6) positive AE1-3 (AE1/AE3/PCK26) positive CK8 (78ticyF62) positive Calponin-1 (VB027J) positive in myoepithelial cells P40 (BC28) positive in myoepithelial cells These tests were developed and their performance characteristics determined by [facility]. They may not have been cleared or approved by the U.S. Food and Drug Administration. The FDA has determined that such clearance or approval is not necessary. The above immunohistochemical/dualISH markers are ordered and reviewed by the Pathologist. INTERPRETATION: Right breast central duct, excision: Intraductal hyperplasia with focal atypia. DAVID/ 02/21/24
[2024-02-14 06:24] LABS: Internal QC Validated? YES +Cl - CLEAR BKGD; Pregnancy, Urine Negative Negative
[2024-02-14] MEDS: Lactated Ringers 1,000 ML 15 ML IV (06:30)
--- NOTE | 2024-02-14 06:41 | PCM.HP.STD ---
HPI - General HPI Narrative DEBBIE BELCHER, is a 58 F who presents for intraductal papilloma. The patient had an abnormal ultrasound the left breast and had excision of this area which was found to have a papilloma with focal atypia. Because of the focal atypia of the opposite breast had an ultrasound exam and a papilloma and dilated ducts were identified on that side as well. [facility] Medical History Abnormal mammogram Anxiety Atypical ductal hyperplasia, breast Cardiology follow-up encounter Ectopic atrial tachycardia Heartburn History of echocardiogram History of Holter monitoring History of irregular heartbeat History of stress test Hypothyroidism Palpitations Thyroid disease Wears glasses Wears partial dentures Home Medications sertraline 50 mg tablet 75 mg PO DAILY 09/14/19 [History Last Taken 02/13/24 07:00] cholecalciferol (vitamin D3) 50 mcg (2,000 unit) capsule 6,000 unit PO DAILY 11/15/19 [History Last Taken 02/13/24 07:00] norgestimate-ethinyl estradiol 0.18 mg/0.215mg/0.25mg-35 mcg(28)tablet (Tri Femynor) 1 tab PO DAILY 12/22/21 [History Last Taken 02/13/24 07:00] diltiazem HCl 120 mg capsule,extended release 24 hr 120 mg PO DAILY #90 caps 04/06/23 [Rx Last Taken 02/14/24 05:25] cetirizine 10 mg tablet (24Hour Allergy) 10 mg PO DAILY 01/18/24 [History Last Taken 02/13/24 07:00] levothyroxine 150 mcg tablet 150 mcg PO DAILY 02/13/24 [History Last Taken 02/14/24 05:25] tamoxifen 20 mg tablet 20 mg PO DAILY #90 tabs 02/13/24 [Rx Last Taken Unknown] Allergy/AdvReac Type Severity Reaction Status Date / Time No Known Allergies Allergy Verified 02/14/24 06:34 Family History Father Colon cancer Grandmother Breast cancer Mother Hypertension Surgical History History of breast surgery History of dilatation and curettage History of tonsillectomy Social History (Updated 02/13/24 @ 15:56 by Flavia Cutler) Smoking Status: Former smoker Tobacco: How many years used: 2 how long ago did patient quit smokin years ago alcohol intake: current alcohol intake frequency: holidays/special occasions only details: occasional substance use type: does not use caffeine: Yes Type: carbonated beverages Number of servings: 1 and coffee Number of servings: 2 ROS Constitutional Constitutional: Denies anorexia, chills or fatigue Eyes Eyes: Denies blurry vision ENT HEENT: Denies abnormal hearing Cardiovascular Cardiovascular: Denies chest pain Respiratory/Chest Respiratory/Chest: Denies cough or dyspnea Gastrointestinal Gastrointestinal: Denies abdominal pain or vomiting Genitourinary Genitourinary: Denies change in urinary stream Musculoskeletal Musculoskeletal: Denies abnormal gait Integumentary Integumentary: Denies new lesions Neurologic Neurologic: Denies abnormal gait Psychiatric Psychiatric: Denies anxiety Physical Exam Const oriented x3 and no apparent distress Resp normal respiratory effort GI soft to palpation and non-tender Extremity normal to inspection Results Lab / Micro Data Labs: Laboratory Results - last 24 hr 02/14/24 06:11: Urine Test Negative Assessment & Plan Assessment/Plan (1) Atypical ductal hyperplasia, breast: (2) Intraductal papilloma: PLAN: Plan The patient has central ductal excision on the left a few weeks ago and the pathology showed intraductal papillomatosis with focal atypia. The opposite breast had an ultrasound performed and there was found that she had dilated ducts and intraductal papilloma on the side as well. I discussed with oncology and we decided to perform excisional biopsy to make sure this is the same as the opposite side. After this the patient will be enrolled in the high risk screening protocol. I discussed contralateral central ductal excision with the patient in detail. I discussed the risks including modalities to bleeding, infection, hematoma or seroma formation. Patient understands the risks and is willing to proceed. She is also aware that if there is any cancer identified she will need further axillary biopsy. Darek Campos MD Pager: [facility] [address] [place] [address], [address] [place] [address] Office:
[2024-02-14 06:42] VITALS: BP 106/64; PULSE 80; RESP 16; TEMP 37.1; O2SAT 97; BMI 28.6
[2024-02-14] MEDS: Cefazolin 2 GM in 0.9% Normal Saline (100mL Bag) 100 ML IV (07:25)
--- NOTE | 2024-02-14 07:30 | BRBX_PTH ---
PATIENT: DEBBIE BELCHER [place] [facility] [place] U#:[id number] AGE/SX: 58/F ROOM: RE02/14/[address]: Dr. Darek Campos MD : 1965 BED: DIS: 02/14/2024 SPEC #: [id number] RECD: 02/14/24 10:02 STATUS: CECY SANDIP #: [id number] ROLAND: 02/14/24 07:[address]: Darek Campos DEPT: SURGICAL PATHOLOGY RECD BY: Kala Butler ENTERED: 02/14/24 11:16 SP TYPE: BREAST BX OTHR DR: Dr. Ciara Ellis DO Tissues: Right breast, NOS Procedures: Surgery Specimen Level IV HEADER OPERATION: Excision, right breast central ductal PRE-OP DIAGNOSIS: Atypical ductal hyperplasia, breast, Intraductal papilloma TISSUE SUBMITTED: Right breast central ductal excision MICROSCOPIC DIAGNOSIS Right breast central duct, excision: Multifocal intraductal hyperplasia with focal atypia. Fibrocystic changes. Focal intraductal papillomatosis. Focal microcalcifications. Negative for malignancy. See comment. DAVID/ 02/17/24 COMMENT Please make reference to previous specimen ([id number]), left central duct lesion, excision with diagnosis of florid intraductal hyperplasia with focal atypia, fibrocystic change, intraductal papillomatosis. Immunohistochemistry ([id number]) supports the above diagnosis. Case has been reviewed in consultation with Dr. Edwards who concurs with the above diagnosis. IDC:AM MICROSCOPIC DESCRIPTION Slides are reviewed. GROSS DESCRIPTION Received in fixative is one container labeled with the patient's name and designated Right breast ductal excision. The specimen consists of a piece of fibroadipose tissue measuring 5.0 x 3.5 x 2.0 cm. No orientation is provided. The specimen is partially disrupted focally. The specimen is inked, serially sectioned and reveal rangel-yellow adipose cut surfaces with focal fibrous areas. No obvious mass is identified and submitted entirely in 14 cassettes from one end to the other end. Sections are submitted after additional fixation. SJ/mr 02/15/24 TC:5 CPT: 49704
[2024-02-14] MEDS: Bupivacaine Mpf 0.5% 30 ML VIAL (07:46)
[2024-02-14 08:00] VITALS: BP 106/64; BP 118/69; PULSE 83; RESP 18; TEMP 36.6; O2SAT 96
[2024-02-14 08:05] VITALS: BP 106/64; BP 118/62; PULSE 90; RESP 18; O2SAT 93
[2024-02-14 08:10] VITALS: BP 106/64; BP 112/59; PULSE 86; RESP 18; TEMP 36.7; O2SAT 94
--- NOTE | 2024-02-14 08:18 | PCM.OPRPT ---
Report of Operation Date of Procedure: 02/14/24 Pre-Operative Diagnosis: Right breast intraductal papilloma Post-Operative Diagnosis: Same Surgery/Procedure Performed:: Right breast central ductal excision Type of Anesthesia: General/Regional Specimen's removed: Right breast central ductal excision Estimated Blood Loss (mL): 5 Description of Procedure: Patient was brought back to the operating room and general anesthesia was induced. The right breast was prepped and draped in usual sterile fashion. An incision was marked lateral to the nipple in the periareolar space similar to the opposite side. It was then injected with local anesthetic and incision was made with a scalpel. The nipple was retracted upwards and the retroareolar tissue was dissected free. Next the tissue was dissected from the surrounding breast tissue and it was sent for pathology. The cavity was inspected and was irrigated and suctioned dry. Hemostasis was obtained using electrocautery. The dermis was closed with interrupted 3-0 Vicryl sutures and the epidermis was closed with a running 4-0 Monocryl suture. Dermabond glue was applied. Patient was brought to PACU in stable condition and tolerated the procedure well. Admit VTE Documentation VTE Mechan Device Prophylaxis: SCD's
--- NOTE | 2024-02-14 08:22 | EX.PCM.DISCH ---
Discharge Instructions Procedure Breast Surgery Diet Discharge Diet: No restrictions Activity Discharge Activity: May Drive and May Shower Lifting Restrictions: 15 lbs for 3-4 days Dressing / Incision Call your doctor if your incision/area has: Continuous Slow Oozing and Increased Redness Call your doctor if you observe: Fever of 101 or Higher Suture Line Care: Avoid Pulling/Pushing and Avoid Pinching/Bending Additional Dressing/Incision Instructions:: Take ibuprofen and Tylenol for pain Follow Up Care Please Follow Up With: Darek Campos MD When: Please call to schedule 2 week follow up appointment. [phone] Test Results: Test results from this visit will be discussed in further detail at your follow-up appointment, if applicable. Discharge Plan Admission Attending Provider: Darek Campos Primary Care Provider: Ciara Ellis Discharge Orders/Prescriptions Prescriptions: No Action cholecalciferol (vitamin D3) 50 mcg (2,000 unit) capsule 6,000 unit PO DAILY sertraline 50 mg tablet 75 mg PO DAILY norgestimate-ethinyl estradiol [Tri Femynor] 0.18/0.215/0.25 mg-35 mcg (28) tablet 1 tab PO DAILY levothyroxine 150 mcg tablet 150 mcg PO DAILY tamoxifen 20 mg tablet 20 mg PO DAILY Qty: 90 4RF Hold Instructions: Pt has not started taking yet Patient Comments: Not started yet just filled the script. cetirizine [24Hour Allergy] 10 mg tablet 10 mg PO DAILY diltiazem HCl 120 mg capsule,extended release 24hr 120 mg PO DAILY Qty: 90 3RF Other Ambulatory Orders: ,Urine (Routine) Timeframe: 20240214 Facility: [facility] - Location: Laboratory Ordered By: Dr. Gabriel Pathak Referrals / Follow Up: Ciara Ellis DO [Primary Care Provider] - Disposition Disposition (needs filled in before D/C Order can be placed): Home, Self Care
[2024-02-14 08:32] VITALS: BP 106/64
== END 2024-02-14 08:36 | disposition home or self-care (01) ==
LOC: SDC 05:55 → AC 05:56
PROVIDERS: Anesthesiology; PCP Family Medicine; Referring Provider Surgery; Visit Provider Surgery
PROC: (CPT 19120; principal; 2024-02-14 07:15)
DX: D24.1 Benign neoplasm of right breast (principal); E03.9 Hypothyroidism, unspecified; Z87.891 Personal history of nicotine dependence; Z79.890 Hormone replacement therapy; Z79.899 Other long term (current) drug therapy; N60.92 Unspecified benign mammary dysplasia of left breast; N60.91 Unspecified benign mammary dysplasia of right breast
CPT/HCPCS: 19120; 81025; 88305; 88341; 88342; A4648; J7120; J2405

== ENCOUNTER → 2024-08-07 | Outpatient (CLI) | payer OTHER, SELFPAY ==
--- NOTE | 2024-08-07 13:33 | MRI_ITS ---
STUDY: BILATERAL BREAST MR WITHOUT AND WITH CONTRAST REASON FOR EXAM: Female, 59 years old. Lumps removed from both nipples which were benign in 6 months ago. TECHNIQUE: Multi-sequence multi-echo imaging of both breasts was performed with a dedicated breast coil. T1-weighted and T2-weighted images were performed before the administration of contrast. T1-weighted images were also performed after the intravenous administration of 15 cc of Clariscan contrast. COMPARISON: Bilateral mammogram dated December 27, 2023 and bilateral breast ultrasound dated February 06, 2024 FINDINGS: RIGHT BREAST: Scattered fibroglandular densities with mild background enhancement. Postsurgical changes in the retroareolar region with nipple retraction and periareolar scan thickening. No focal abnormal enhancing masses or areas of non-mass enhancement in the right breast. LEFT BREAST: Scattered fibroglandular densities with mild to moderate background enhancement. Postsurgical changes in the areolar region with nipple retraction and periareolar skin thickening. No focal abnormal enhancing masses or areas of non-mass enhancement in the left breast. No enlarged or abnormal lymph nodes. No abnormality in the visualized regions of the chest or liver. MRI/Breast Bilateral W/O and W IMPRESSION: Scattered fibroglandular densities with background enhancement, left greater than right. Postsurgical changes of both retroareolar regions with nipple retraction and skin thickening. No focal enhancing lesions. Follow-up annual screening mammogram recommended. CATEGORY: BIRADS Category 2: Benign. A letter regarding these results will be sent to the patient by the facility within 30 days. Electronically Signed: Dmitry Littlejohn MD at 15:15 EDT ,
== END | disposition home or self-care (01) ==
LOC: MRI 13:30
PROVIDERS: PCP Family Medicine; Referring Provider Internal Medicine Hematology & Oncology; Visit Provider Internal Medicine Hematology & Oncology
DX: N60.99 Unspecified benign mammary dysplasia of unspecified breast (principal)
CPT/HCPCS: 77049; A9575; A4216; C8908

== ENCOUNTER → 2024-09-17 | Outpatient (CLI) | payer OTHER, SELFPAY ==
[2024-09-17 13:00] LABS: PTHIN 136.3 pg/mL (18.4-80.1)
[2024-09-17 13:02] LABS: Ionized Calcium 5.55 mg/dL (4.36-5.20)
[2024-09-17 13:05] LABS: Ionized Calcium Order ORDER TUBE
[2024-09-17 13:06] LABS: Vitamin D,25 Hydroxy 80.6 ng/mL
[2024-09-17 13:29] LABS: ALB/GLOB Ratio 1.2 RATIO (0.9-2.4); AST(SGOT) 18 U/L (15-37); Alanine Aminotransfer ALT/SGPT 22 U/L (13-56); Albumin, Serum 3.9 g/dL (3.2-5.0); Alkaline Phosphatase 84 U/L (45-117); Anion Gap 9 (5-15); BUN 12 mg/dL (7-18); BUN/Creat Ratio 12.8 RATIO (10-20); Chloride 106 mmol/L (98-107); Creatinine, Serum 0.94 mg/dL (0.55-1.02); EST Glomerular Filtration Rate 65 mL/min (>60); Est Glom Filt Rate - Afr Amer 79 mL/min (>60); Free T3 2.9 pg/mL (2.18-3.98); Globulin 3.3 g/dL (2.2-4.2); Glucose 91 mg/dL (74-106); Protein, Total 7.2 g/dL (6.4-8.2); Sodium Level 139 mmol/L (136-145); T4 Free Direct 1.31 ng/dL (0.76-1.46); Thyroid Stim Hormone (TSH) 0.116 uIU/mL (0.358-3.740)
[2024-09-20 12:09] LABS: Vitamin D 1,25-Dihydroxy 39.5 pg/mL (24.8-81.5)
== END | disposition home or self-care (01) ==
PROVIDERS: PCP Family Medicine; Referring Provider Family Medicine; Visit Provider Family Medicine
DX: E83.52 Hypercalcemia (principal); E03.9 Hypothyroidism, unspecified
CPT/HCPCS: 36415; 80053; 82306; 82330; 82652; 83970; 84439; 84443; 84481

== ENCOUNTER → 2024-09-24 | Outpatient (CLI) | payer OTHER, SELFPAY ==
[2024-09-24 08:20] LABS: (24 HR) Urine Calcium 330.4 mg/24 HR (42.0-353.0); 24HR UR TOTAL VOLUME 2800 ml; Calcium Urine pH Range 2; Urine Calcium (Random) 11.8 mg/dL (Not Estab.)
== END | disposition home or self-care (01) ==
LOC: LAB 07:58
PROVIDERS: PCP Family Medicine; Referring Provider Family Medicine; Visit Provider Family Medicine
DX: E03.9 Hypothyroidism, unspecified (principal)
CPT/HCPCS: 81050; 82340

== ENCOUNTER → 2024-10-19 | Outpatient (CLI) | payer OTHER, SELFPAY ==
--- NOTE | 2024-10-19 12:26 | BD_ITS ---
STUDY: DUAL ENERGY X-RAY ABSORPTIOMETRY / DXA REASON FOR EXAM: Female, 59 years old. 252.01Primary hyperparathyroid DENSITY REASON FOR EXAM TECHNIQUE: Bone Mineral Density (BMD) measurements of lumbar spine and bilateral hips were obtained. COMPARISON: None. FINDINGS: Lumbar Spine (L1-L4): g/cm2 (0.938) / T-score (-1.0) / Z-score (0.2) Findings are suggestive of osteopenia with a low fracture risk. Left Femur Total: g/cm2 (0.917) / T-score (-0.2) / Z-score (0.6) Left Femoral Neck: g/cm2 (0.727) / T-score (-1.1) / Z-score (0.1) Right Femur Total: g/cm2 (0.962) / T-score (0.2) / Z-score (1.0) Right Femoral Neck: g/cm2 (0.800) / T-score (-0.4) / Z-score (0.7) BD/Dexa Bone Density Study IMPRESSION: The patient is considered osteopenic as outlined below according to World Ross Organization (WHO) criteria with a low fracture risk. Reference Information: The T-score is the number of standard deviations above or below the standard which is normal for young adults at their peak bone mineral density. The World Health Organization (WHO) interprets the T-scores as follows: Above -1 Normal bone density Between -1 and -2.5 Osteopenia Equal to / or below -2.5 Osteoporosis As a practical clinical guideline, osteopenia may be graded as follows: Mild -1 through -1.5 Moderate -1.6 through -2.0 Severe -2.1 through -2.4 The Z-score is the number of standard deviations above or below age-matched controls. A Z-score of less than -1.5 would be considered abnormal. References: 1. NIH Osteoporosis and Related Bone Diseases www osteo.org 2. International Society for Clinical Densitometry www iscd.org 3. National Osteoporosis Foundation www nof.org Electronically Signed: Ney Durant MD at 12:04 EST ,
== END | disposition home or self-care (01) ==
LOC: OPBD 12:21
PROVIDERS: PCP Family Medicine; Referring Provider Family Medicine; Visit Provider Family Medicine
DX: E83.52 Hypercalcemia (principal); E21.3 Hyperparathyroidism, unspecified
CPT/HCPCS: 77080

== ENCOUNTER → 2024-11-23 | Outpatient (CLI) | payer OTHER, SELFPAY ==
[2024-11-23 16:23] LABS: Free T3 2.5 pg/mL (2.18-3.98); T4 Free Direct 1.04 ng/dL (0.76-1.46)
== END | disposition home or self-care (01) ==
LOC: LAB 15:07
PROVIDERS: PCP Family Medicine; Referring Provider Family Medicine; Visit Provider Family Medicine
DX: E03.9 Hypothyroidism, unspecified (principal)

== ENCOUNTER → 2024-12-28 | Outpatient (CLI) | payer OTHER, SELFPAY ==
--- NOTE | 2024-12-28 15:07 | BI_ITS ---
PROCEDURE: SCRN MAMM (CAD)W/DORA BILAT REASON FOR EXAM: F, Age 59 y/o , . History of prior bilateral retroareolar excisional breast biopsies. Grandmother with breast cancer. TECHNIQUE: Bilateral screening digital breast tomosynthesis with 2D and 3D images. Computer aided detection. COMPARISON: Comparison is made with prior MRI examination dated August 07, 2024. FINDINGS: There are scattered areas of fibroglandular density. The patient is status post bilateral retroareolar excisional breast biopsies with postoperative scarring. No suspicious masses, areas of developing architectural distortion, or suspicious calcifications. BI/SCRN MAMM (CAD)W/DORA BILAT IMPRESSION: BI-RADS 2: BENIGN. RECOMMEND ANNUAL MAMMOGRAPHIC SCREENING. Follow-up code: Routine Follow-up The patient will be notified of the results by letter. Reading Location: [id number]
== END | disposition home or self-care (01) ==
LOC: OPBI 15:05
PROVIDERS: PCP Family Medicine; Referring Provider Internal Medicine Hematology & Oncology; Visit Provider Internal Medicine Hematology & Oncology
DX: Z12.31 Encounter for screening mammogram for malignant neoplasm of breast (principal)
CPT/HCPCS: 77063; 77067

== ENCOUNTER → 2025-02-11 | Outpatient (CLI) | payer OTHER, SELFPAY ==
--- NOTE | 2025-02-11 08:51 | US_ITS ---
PROCEDURE: BREAST COMPLETE UNILATERAL 02/11/2025 REASON FOR EXAM: F, Age 59 y/o , LEFT BREAST PAIN AND ITCHING COMPARISON: Prior mammogram study dated 12/28/2024. TECHNIQUE: Bilateral diagnostic digital breast tomosynthesis with 2D and 3D images. Computer aided detection. A complete left breast ultrasound was performed. All 4 quadrants were scanned as well as the retroareolar region. FINDINGS: ULTRASOUND: A complete left breast ultrasound was performed. There are some minimally ectatic ducts identified in the breast on the images submitted for review. There are benign-appearing cysts identified at the 1 o'clock, 3 cm from the nipple position measuring 3 x 2 x 2 mm, 1 o'clock, 4 cm from the nipple position measuring 4 x 3 x 3 mm, 1 o'clock, 3 cm from the nipple position measuring 4 x 3 x 2 mm, and retroareolar region measuring 8 x 6 x 3 mm. The cyst in the retroareolar region does have internal echoes. The cyst at the 1 o'clock, 3 cm from nipple position measuring 4 x 3 x 2 mm has a thin septation. The cyst may be the cause of her breast pain. No suspicious solid masses are seen to suggest malignancy. The skin is not abnormally thickened. There is no ultrasound abnormality seen to correlate to the itching sensation that the patient is describing. US/Breast Complete Unilateral IMPRESSION: BI-RADS 2: BENIGN RECOMMEND ANNUAL MAMMOGRAPHIC SCREENING. Reading Location: [id number]
== END | disposition home or self-care (01) ==
LOC: OPUS 08:50
PROVIDERS: PCP Family Medicine; Referring Provider Surgery; Visit Provider Surgery
DX: N64.4 Mastodynia (principal); N64.59 Other signs and symptoms in breast
CPT/HCPCS: 76641

== ENCOUNTER → 2025-08-05 | Outpatient (CLI) | payer OTHER, SELFPAY ==
--- NOTE | 2025-08-05 10:34 | MRI_ITS ---
PROCEDURE: BREAST BILATERAL W/O AND W 08/05/2025 REASON FOR EXAM: ATYPICAL BREAST DUCTAL HYPERPLASIA History of bilateral breast lumpectomies. TECHNIQUE: Procedure Code: [id number] Modality: MR Procedure: BREAST BILATERAL W/O AND W CONTRAST: 14 cc of Clariscan COMPARISON: Breast MRI dated 08/07/2024 and breast ultrasound dated 02/11/2025. Mammogram studies dated 12/28/2024 and 02/06/2024 were reviewed. FINDINGS: TISSUE DENSITY: There are scattered areas of fibroglandular density. Background Parenchymal Enhancement: Minimal RIGHT Breast: No suspicious mass or non-mass enhancement. There is subtle architectural distortion at the post lumpectomy site. LEFT Breast: No suspicious mass or non-mass enhancement. There is subtle architectural distortion at the post lumpectomy site. Other Findings: No suspicious axillary or internal mammary lymph nodes. Visualized portions of the thoracic and abdominal viscera are unremarkable. MRI/Breast Bilateral W/O and W IMPRESSION: OVERALL FINAL ASSESSMENT BI-RADS 2: BENIGN RECOMMENDATION: Routine annual follow-up in 1 Year Patient should return in December 2025 for routine yearly screening mammography . Reading Location: [id number]
== END | disposition home or self-care (01) ==
LOC: OPMRI 10:33
PROVIDERS: PCP Family Medicine; Referring Provider Internal Medicine Hematology & Oncology; Visit Provider Internal Medicine Hematology & Oncology
DX: N60.99 Unspecified benign mammary dysplasia of unspecified breast (principal)
CPT/HCPCS: 77049; A9581; C8908

== ENCOUNTER → 2025-10-25 | Outpatient (CLI) | payer OTHER, SELFPAY ==
--- OUTSIDE RECORDS SUMMARY | 2025-10-25 13:32 | XMS RPT_ITS | CCD ---
Author Organization [facility] Care Team Providers Care Agriculture Mechanic Name Role Phone Dr. Ciara Ellis Primary Care Provider Dr. Ciara Ellis Referring Provider Martinez NASH, [place] Kecia Sosa Attending Provider Dr. Ciara Ellis Primary Care Provider Dr. Ciara Ellis Referring Provider Dr. Tito Reyna Attending Provider Dr. Darek Campos Attending Provider Dr. Ciara Ellis Primary Care Provider Dr. Ciara Ellis Referring Provider Dr. Ttio Reyna Attending Provider Dr. Darek Campos Attending Provider Dr. Daerk Campos Referring Provider Dr. Darek Campos Other Provider Dr. Stone Orozco Attending Provider Dr. Ciara Ellis DO Primary Care Provider Dr. Ciara Ellis DO Attending Provider [phone] Ciara Ellis DO Referring Provider Dr. Jacoby Khan MD Attending Provider Dr. Stone Orozco MD Attending Provider Dr. Stone Orozco MD Referring Provider Beth ANDRE, Dr. Oswald Attending Provider Beth ANDRE, Dr. Oswald Referring Provider [phone] Dr. Ciara Ellis DO Primary Care Physician Ernesto ANDRE, Dr. Ritter Attending Physician [phone] Ernesto ANDRE, Dr. Ritter Referring Provider Rhonda ADAM, Dr. Urbina Referring Provider Darek Campos Attending Unavailable Tiaraabretta, Darek Referring Unavailable Malys, Ciara Primary Care Unavailable Isckarus, Mansour Referring Unavailable Isckarus, Mansour Attending Unavailable Malys, Ciara Primary Care Unavailable Malys, Ciara Primary Care Unavailable Malys, Ciara Attending Unavailable Malys, Ciara Referring Unavailable Malys, Ciara Primary Care Unavailable Malys, Ciara Attending Unavailable Malys, Ciara Referring Unavailable Isckarus, Mansour Attending Unavailable Isckarus, Mansour Referring Unavailable Malys, Ciara Primary Care Unavailable Malys, Ciara Primary Care Unavailable Malys, Ciara Attending Unavailable Malys, Ciara Referring Unavailable Isckarus, Herreraour Attending Unavailable Isckarus, Mansour Referring Unavailable Malys, Ciara Primary Care Unavailable Isckarus, Mansour Attending Unavailable Malys, Ciara Referring Unavailable Malys, Ciara Primary Care Unavailable Bill, Jacoby Attending Unavailable Malys, Ciara Referring Unavailable Malys, Ciara Primary Care Unavailable Malys, Ciara Primary Care Unavailable Malys, Ciara Attending Unavailable Malys, Ciara Referring Unavailable Malys, Ciara Primary Care Unavailable Malys, Ciara Attending Unavailable Malys, Ciara Referring Unavailable Medications Current Medications Medication Drug Class(es) Dates Sig (Normalized) Sig (Original) cetirizine hydrochloride 10 mg oral tablet (7 sources) Histamine-1 Receptor Antagonist Start: 01-18-2024 take 1 tablet by mouth once daily cholecalciferol 0.05 mg oral capsule (20 sources) Vitamin D Start: 08-12-2025 take 1 capsule by mouth once daily Start: 08-12-2025 take 1 capsule by [facility] once daily Start: 11-15-2019 End: 08-12-2025 take 1 capsule by mouth once daily Cholecalciferol (Vitamin D3) 50 mcg (2,000 unit) capsule Discontinued 6000 U PO DAILY November 15, 2019 4:25pm August 12, 2025 2:27pm Start: 09-26-2019 End: 11-15-2019 take 1 capsule by mouth once daily Cholecalciferol (Vitamin D3) 2,000 unit capsule Discontinued 2000 U PO DAILY September 26, 2019 1:00am November 15, 2019 4:26pm levothyroxine sodium 0.15 mg oral tablet (20 sources) l-Thyroxine Start: 11-05-2024 End: 11-05-2024 Start: 02-13-2024 End: 11-05-2024 take 1 tablet by mouth once daily Levothyroxine 150 mcg tablet Discontinued 150 ug PO DAILY February 13, 2024 12:00am November 05, 2024 3:20pm Start: 12-22-2021 End: 02-13-2024 Levothyroxine 100 mcg tablet Discontinued 150 ug PO DAILY December 22, 2021 5:05pm February 13, 2024 3:54pm Start: 12-22-2021 End: 02-13-2024 take 150 ug by mouth once daily Levothyroxine Discontinued 150 MCG PO DAILY December 22, 2021 5:05pm February 13, 2024 3:54pm Start: 09-14-2019 End: 12-22-2021 take 1 tablet by mouth once daily Levothyroxine 100 mcg tablet Discontinued 100 ug PO .COMPLEX September 14, 2019 12:00am December 22, 2021 5:05pm 100 mcg PO Daily on Tuesday; Start: 09-14-2019 End: 12-19-2023 take 1 tablet by mouth once daily Levothyroxine 150 mcg tablet Discontinued 150 ug PO .COMPLEX September 14, 2019 4:53pm December 19, 2023 9:09am 150 mcg PO Daily except on Tuesday; sertraline 50 mg oral tablet (13 sources) Serotonin Reuptake Inhibitor Start: 09-14-2019 Start: 09-14-2019 take 75 mg by mouth once daily Sertraline Active 75 MG PO DAILY September 14, 2019 12:00am tamoxifen 20 mg oral tablet (7 sources) Estrogen Agonist/Antagonist Start: 08-12-2025 take 1 table t by mouth once daily Start: 08-12-2025 take 1 tablet by pattie th once daily Start: 02-13-2024 End: 08-12-2025 take 1 tablet by mouth once daily Tamoxifen 20 mg tablet Discontinued 20 mg PO DAILY 90 4 February 13, 2024 12:00am August 12, 2025 2:26pm Atypical ductal hyperplasia of breast Unspecified benign mammary dysplasia of unspecified breast Completed/Discontinued Medications Medication Drug Class(es) Dates Sig (Normalized) Sig (Original) 24 hr dilTIAZem hydrochloride 120 mg extended release oral capsule (20 sources) Calcium Channel Fela Start: 09-26-2019 End: 04-10-2024 take 1 capsule by mouth once daily Diltiazem Hcl 120 mg capsule,extended release 24hr Discontinued 120 mg PO DAILY 90 3 April 06, 2023 1:08pm April 10, 2024 2:08pm Norgestimate-Ethinyl Estradiol (20 sources) Progestin, Estrogen Start: 12-22-2021 End: 08-14-2024 Norgestimate-Ethin yl Estradiol (Tri Femynor) 0.18/0.215/0.25 mg-35 mcg (28) tablet Discontinued 1 {tbl} PO DAILY December 22, 2021 1:00am August 14, 2024 3:40pm Start: 12-22-2021 take 1 tablet by pattie th once daily Norgestimate-Ethinyl Estradiol (Tri Femynor) 0.18/0.215/0.25 mg-35 mcg (28) tablet Active 1 TABLET PO DAILY December 22, 2021 12:00am Start: 12-22-2021 take 1 tablet by pattie th once daily Norgestimate-Ethinyl Estradiol (Tri Femynor) 0.18/0.215/0.25 mg-35 mcg (28) tablet Active 1 TABLET PO DAILY December 22, 2021 1:00am Start: 09-14-2019 End: 12-22-2021 Norgestimate-Ethinyl Estradi ol (Tri-Linyah) 0.18/0.215/0.25 mg-35 mcg (28) tablet Discontinued 1 {tbl} PO DAILY September 14, 2019 12:00am December 22, 2021 4:52pm Start: 09-14-2019 End: 12-22-2021 take 1 tablet by mouth once daily Norgestimate-Ethinyl Estradiol (Tri-Linyah) 0.18/0.215/0.25 mg-35 mcg (28) tablet Discontinued 1 TABLET PO DAILY September 13, 2019 11:00pm December 22, 2021 3:52pm Start: 09-14-2019 End: 12-22-2021 take 1 tablet by mouth once daily Norgestimate-Ethinyl Estradiol (Tri-Linyah) 0.18/0.215/0.25 mg-35 mcg (28) tablet Discontinued 1 TABLET PO DAILY September 14, 2019 12:00am December 22, 2021 4:52pm naproxen 500 mg oral tablet (9 sources) Nonsteroidal Anti-inflammatory Drug Start: 12-19-2023 End: 01-18-2024 Naproxen 500 mg tablet Discontinued 500 mg PO December 19, 2023 1:00am January 18, 2024 10:19am oxyCODONE hydrochloride 5 mg oral tablet (7 sources) Opioid Agonist Start: 01-25-2024 End: 02-01-2024 take 5-10 mg by mouth every six hours as needed for pain Oxycodone 5 mg tablet Discontinued 5 - 10 mg PO EVERY 6 HOURS as needed for pain 15 5 0 January 25, 2024 February 01, 2024 2:31pm Mass of left breast Unspecified lump in the left breast, unspecified quadrant Problems Problem Classification Problem Date Documented Da te Episodic/Chronic Cardiac dysrhythmias (14 sources) Ectopic atrial tachycardia; Translations: [Supraventricular tachycardia] 09-17-2019 Chronic Cardiac dysrhythmias (14 sources) Palpitations; Translations: [Palpitations] 09-17-2019 Episodic Nonmalignant breast conditions (20 sources) Discharge from nipple; Translations: [Nipple discharge] Onset: 02-14-2025 01-02-2024 Episodic Nonspecific chest pain (13 sources) Chest pain; Translations: [Chest pain, unspecified] 12-22-2021 Episodic Other and unspecified benign neoplasm (8 sources) Duct papilloma of breast; Translations: [Benign neoplasm, unspecified site] 02-03-2024 Episodic Other and unspecified benign neoplasm (8 sources) Benign neoplasm, unspecified site; Translations: [Benign neoplasm of unspecified site] Onset: 08-12-2025 02-01-2024 Episodic Other connective tissue disease (6 sources) Other shoulder lesions, right shoulder; Translations: [Disorders of bursae and tendons in shoulder region, unspecified] 12-19-2023 Episodic Other endocrine disorders (4 sources) Primary hyperparathyroidism ; Translations: [Primary hyperparathyroidism ] 12-11-2024 Chronic Other endocrine disorders (1 source) Primary hyperparathyroidism ; Translations: [Primary hyperparathyroidism ] Onset: 12-10-2024 Chronic Other nutritional; endocrine; and metabolic disorders (2 sources) Hypercalcemia; Translations: [Hypercalcemia] Onset: 08-21-2024 Chronic Other screening for suspected conditions (not mental disorders or infectious disease) (7 sources) Mammography abnormal; Translations: [Other abnormal and inconclusive findings on diagnostic imaging of breast] Onset: 08-12-2025 02-03-2024 Episodic Thyroid disorders (15 sources) Hypothyroidism; Translations: [Hypothyroidism, unspecified] Onset: 12-19-2024 09-26-2019 Chronic Results Test Name Value Interpretation Reference Range Facility Absolute [facility]Ord ered [facility] on 08-12-2025 Lymphocytes Auto (Unsp spec) [#/Vol] 2.62 10*3/uL 0.83-4.[address] [facility] Absolute neutrophil countOrd ered By[facility] on 08-12-2025 Neutrophils (Bld) [#/Vol] 4.3 10*3/uL 2.0-7.[address] [facility] Anion gap in Serum or Plasma Or[facility]: [facility] on 08-12-2025 Anion gap [Moles/Vol] 14 mmol/L 5-15 [facility] Automated lymphocyte count a s percentage of total leukocytesOrdered By: [facility] Ernesto on 08-12-2025 Lymphocytes/100 WBC Auto (Unsp spec) 35.0 % 19-[address] [facility] BUN/creatinine ratioOrdered By: [facility] Ernesto on 08-12-2025 Urea nitrogen/Creatinine [Mass ratio] 11.9 mg/mg 10-[address] [facility] Basophil percentageOrdered B y: [facility] on 08-12-2025 Basophils/100 WBC (Bld) 0.5 % 0-1 [facility] Bilirubin, totalOrdered By: [facility] Ernesto on 08-12-2025 Bilirubin [Mass/Vol] 0.20 mg/dL 0.00-1.30 [facility] CBC W/Diff, Automatedon 09- Absolute Lymph 2.62 X10 3/uL Normal 0.83-4.[address] [facility] Comment on above: Performed By: #### L 100.0100, L500.4050 #### [facility] [address] [place], [address] Absolute Neut 4.3 X10 3/uL Normal 2.0-7.[address] [facility] Comment on above: Performed By: #### L 100.0100, L500.4050 #### [facility] [address] [place], [address] Basophils/100 WBC (Bld) 0.5 % Normal 0-1 [facility] Comment on above: Performed By: #### L 100.0100, L500.4050 #### [facility] [address] [place], [address] Eosinophils/100 WBC (Bld) 0.8 % Normal 0-[address] [facility] Comment on above: Performed By: #### L 100.0100, L500.4050 #### [facility] [address] [place], [address] Erythrocyte distribution width (RBC) [Ratio] 12.4 % Normal 11.6-14.[address] [facility] Comment on above: Performed By: #### L 100.0100, L500.4050 #### [facility] [address] [place], [address] Hematocrit (Bld) [Volume fraction] 37.6 % Normal 37-[address] [facility] Comment on above: Performed By: #### L 100.0100, L500.4050 #### [facility] [address] [place], [address] Hemoglobin (Bld) [Mass/Vol] 12.6 g/dL Normal 12.0-15.[address] [facility] Comment on above: Performed By: #### L 100.0100, L500.4050 #### [facility] [address] [place], [address] IG% 0.300 Normal 0.0-0.[address] [facility] Comment on above: Result Comment: IG% - Immature Granulocytes (promyelocytes, myelocytes and metamyelocytes) > 1% indicates that a LEFT SHIFT is Present. Performed By: #### L 100.0100, L500.4050 #### [facility] [address] [place], [address] Lymphocytes/100 WBC (Bld) 35.0 % Normal 19-[address] [facility] Comment on above: Performed By: #### L 100.0100, L500.4050 #### [facility] [address] [place], [address] MCH (RBC) [Entitic mass] 28.5 pg Normal 27.0-32.[address] [facility] Comment on above: Performed By: #### L 100.0100, L500.4050 #### [facility] [address] [place], [address] MCHC (RBC) [Mass/Vol] 33.5 g/dL Normal 32-36 [facility] Comment on above: Performed By: #### L 100.0100, L500.4050 #### [facility] [address] [place], [address] MCV (RBC) [Entitic vol] 85.1 fL Normal 81-99 [facility] Comment on above: Performed By: #### L 100.0100, L500.4050 #### [facility] [address] [place], [address] Monocytes/100 WBC (Bld) 6.1 % Normal 0-10 [facility] Comment on above: Performed By: #### L 100.0100, L500.4050 #### [facility] [address] [place], [address] Neutrophils/100 WBC (Bld) 57.3 % Normal 47-[address] [facility] Comment on above: Performed By: #### L 100.0100, L500.4050 #### [facility] [address] [place], [address] Nucleated RBC (Bld) [#/Vol] 0 10*3/uL Normal 0-[address] [facility] Comment on above: Performed By: #### L 100.0100, L500.4050 #### [facility] [address] [place], [address] Platelet mean volume (Bld) [Entitic vol] 9.8 fL Normal 6.2-12.[address] [facility] Comment on above: Performed By: #### L 100.0100, L500.4050 #### [facility] [address] [place], [address] Platelets (Bld) [#/Vol] 254 10*3/uL Normal 150-[address] [facility] Comment on above: Performed By: #### L 100.0100, L500.4050 #### [facility] [address] [place], [address] RBC (Bld) [#/Vol] 4.42 10*6/uL Normal 4.2-5.4 [facility] Comment on above: Performed By: #### L 100.0100, L500.4050 #### [facility] [address] [place], [address] RDW SD 38.4 fl Normal 35.1-43.[address] [facility] Comment on above: Performed By: #### L 100.0100, L500.4050 #### [facility] [address] [place], [address] WBC (Bld) [#/Vol] 7.5 10*3/uL Normal 4.4-11.0 [facility] Comment on above: Performed By: #### L 100.0100, L500.4050 #### [facility] [address] [place], [address] Carbon dioxide, total [Moles /volume] in Central venous bloodOrdered By: Stone Orozco on 08-12-2025 CO2 [Moles/Vol] 21.4 mmol/L 21.0-32.[address] [facility] Chloride assayOrdered By: Alise Orozco on 08-12-2025 Chloride [Moles/Vol] 104 mmol/L 98-108 [facility] Comprehensive Metabolic Prof ilon 08-12-2025 Albumin [Mass/Vol] 4.3 g/dL Normal 3.5-5.0 [facility] Comment on above: Performed By: #### L 100.0100, L500.4050 #### [facility] [address] [place], [address] Albumin/Globulin [Mass ratio] 1.8 {ratio} Normal 0.9-2.[address] [facility] Comment on above: Performed By: #### L 100.0100, L500.4050 #### [facility] [address] [place], [address] ALK PHOS 114 U/L High 35-[address] [facility] Comment on above: Performed By: #### L 100.0100, L500.4050 #### [facility] [address] [place], [address] ALT [Catalytic activity/Vol] 21 U/L Normal <=[address] [facility] Comment on above: Performed By: #### L 100.0100, L500.4050 #### [facility] [address] [place], [address] AST [Catalytic activity/Vol] 22 U/L Normal <=[address] [facility] Comment on above: Performed By: #### L 100.0100, L500.4050 #### [facility] [address] [place], [address] Bilirubin [Mass/Vol] 0.20 mg/dL Normal 0.00-1.30 [facility] Comment on above: Performed By: #### L 100.0100, L500.4050 #### [facility] [address] [place], [address] BUN/CRE 11.9 RATIO Normal 10-[address] [facility] Comment on above: Performed By: #### L 100.0100, L500.4050 #### [facility] [address] [place], [address] Calcium [Mass/Vol] 10.9 mg/dL Normal 7.6-11.0 [facility] Comment on above: Performed By: #### L 100.0100, L500.4050 #### [facility] [address] [place], [address] Chloride [Moles/Vol] 104 mmol/L Normal 98-108 [facility] Comment on above: Performed By: #### L 100.0100, L500.4050 #### [facility] [address] [place], [address] CO2 [Moles/Vol] 21.4 mmol/L Normal 21.0-32.[address] [facility] Comment on above: Performed By: #### L 100.0100, L500.4050 #### [facility] [address] [place], [address] Creatinine [Mass/Vol] 1.00 mg/dL Normal 0.70-1.20 [facility] Comment on above: Performed By: #### L 100.0100, L500.4050 #### [facility] [address] [place], [address] ECRCL 61.03 ml/min Normal 50-[address] [facility] Comment on above: Performed By: #### L 100.0100, L500.4050 #### [facility] [address] [place], [address] GAP 14 Normal 5-[address] [facility] Comment on above: Performed By: #### L 100.0100, L500.4050 #### [facility] [address] [place], [address] GFR/1.73 sq M.predicted among non-blacks MDRD (S/P/Bld) [Vol rate/Area] 65 mL/min/{1.73_m2} Normal >[address] [facility] Comment on above: Result Comment: mL/m in/1.73m2 CKD-EPI Creatinine Equation (2020) Performed By: #### L 100.0100, L500.4050 #### [facility] [address] [place], [address] Globulin (S) [Mass/Vol] 2.4 g/dL Normal 2.2-4.2 [facility] Comment on above: Performed By: #### L 100.0100, L500.4050 #### [facility] [address] [place], [address] Glucose [Mass/Vol] 139 mg/dL High 70-99 [facility] Comment on above: Performed By: #### L 100.0100, L500.4050 #### [facility] [address] [place], [address] Potassium [Moles/Vol] 4.0 mmol/L Normal 3.3-5.1 [facility] Comment on above: Performed By: #### L 100.0100, L500.4050 #### [facility] [address] [place], [address] Sodium [Moles/Vol] 139 mmol/L Normal 133-145 [facility] Comment on above: Performed By: #### L 100.0100, L500.4050 #### [facility] [address] [place], [address] T PROT 6.7 g/dL Normal 5.9-8.[address] [facility] Comment on above: Performed By: #### L 100.0100, L500.4050 #### [facility] [address] [place], [address] Urea nitrogen [Mass/Vol] 12 mg/dL Normal 4-[address] [facility] Comment on above: Performed By: #### L 100.0100, L500.4050 #### [facility] [address] [place], [address] Eosinophil percentageOrdered By: Stone Orozco on 08-12-2025 Eosinophils/100 WBC (Bld) 0.8 % 0-[address] [facility] Erythrocyte distribution wid th ratioOrdered By: Stone Orozco on 08-12-2025 Erythrocyte distribution width (RBC) [Ratio] 12.4 % 11.6-14.[address] [facility] Erythrocyte distribution wid th standard deviationOrdered By: Stone Orozco on 08-12-2025 Erythrocyte distribution width (RBC) [Ratio] 38.4 fl 35.1-43.[address] [facility] Glomerular filtration rate ( GFR) estimation/1.73 sq m using serum, plasma, or whole bOrdered By: Stone Orozco on 08-12-2025 GFR/1.73 sq M.predicted among non-blacks MDRD (S/P/Bld) [Vol rate/Area] 65 mL/min/{1.73_m2} >[address] [facility] Comment on above: mL/min/1.73m2 CKD-EP I Creatinine Equation (2020) Hematocrit Auto (Bld) [Volum e fraction]Ordered By: Stone Orozco on 08-12-2025 Hematocrit (Bld) [Volume fraction] 37.6 % 37-[address] [facility] Hemoglobin measurementOrdere d By: Stone Orozco on 08-12-2025 Hemoglobin (Bld) [Mass/Vol] 12.6 g/dL 12.0-15.[address] [facility] Immature granulocytes/100 WB C Auto (Bld)Ordered By: Stone Orozco on 08-12-2025 Immature granulocytes/100 WBC (Bld) 0.300 % 0.0-0.[address] [facility] Comment on above: IG% - Immature Granu locytes (promyelocytes, myelocytes and metamyelocytes) > 1% indicates that a LEFT SHIFT is Present. Laboratory - Chemistry and C hemistry - challengeOrdered By: Stone Orozco on 08-12-2025 AST [Catalytic activity/Vol] 22 U/L <[address] [facility] MCV (mean corpuscular volume ) determinationOrdered By: Stone Orozco on 08-12-2025 MCV (RBC) [Entitic vol] 85.1 fL 81-99 [facility] Magnetic resonance imaging r eportOrdered By: Juju Lutz on 08-12-2025 Study report [facility] Services [address] [place], [place] [address] Breast Bilateral W/O and W MR#: [id number] Acct: [id number] Name: DEBBIE BELCHER Rep #: [id number] : 1965 F [id number] From: Mal Lutz DO PCP: Dr. Ciara Ellis DO Status: DEP CLI Study:Breast Bilateral W/O and W Date of Exam : 08/05/25 Exam# [id number] Ordering Dr: Stone Orozco MD PROCEDURE: BREAST BILATERAL W/O AND W 08/05/2025 REASON FOR EXAM: ATYPICAL BREAST DUCTAL HYPERPLASIA History of bilateral breast lumpectomies. TECHNIQUE: Procedure Code: [id number] Modality: MR Procedure: BREAST BILATERAL W/O AND W CONTRAST: 14 cc of Clariscan COMPARISON: Breast MRI dated 08/07/2024 and breast ultrasound dated 02/11/2025. Mammogram studies dated 12/28/2024 and 02/06/2024 were reviewed. FINDINGS: TISSUE DENSITY: There are scattered areas of fibroglandular density. Background Parenchymal Enhancement: Minimal RIGHT Breast: No suspicious mass or non-mass enhancement. There is subtle architectural distortion at the post lumpectomy site. LEFT Breast: No suspicious mass or non-mass enhancement. There is subtle architectural distortion at the post lumpectomy site. Other Findings: No suspicious axillary or internal mammary lymph nodes. Visualized portions of the thoracic and abdominal viscera are unremarkable. MRI/Breast Bilateral W/O and W IMPRESSION: OVERALL FINAL ASSESSMENT BI-RADS 2: BENIGN RECOMMENDATION: Routine annual follow-up in 1 Year Patient should return in December 2025 for routine yearly screening mammography. Reading Location: [id number] CC: Dr. Ciara Ellis DO; Dr. Stone Orozco MD ~ Mortgage Processing Clerk: Signed [facility] Mean corpuscular hemoglobin (MCH) determinationOrdered By: Stone Orozco on 08-12-2025 MCH (RBC) [Entitic mass] 28.5 pg 27.0-32.[address] [facility] Mean corpuscular hemoglobin concentration (MCHC) determinationOrdered By: Stone Orozco on 08-12-2025 MCHC (RBC) [Mass/Vol] 33.5 g/dL 32-36 [facility] Mean platelet volume determi nationOrdered By: Stone Orozco on 08-12-2025 Platelet mean volume (Bld) [Entitic vol] 9.8 fL 6.2-12.[address] [facility] Monocyte percentageOrdered B y: Stone Orozco on 08-12-2025 Monocytes/100 WBC (Bld) 6.1 % 0-10 [facility] Neutrophil percentageOrdered By: Stone Orozco on 08-12-2025 Neutrophils/100 WBC (Bld) 57.3 % 47-[address] [facility] Nucleated red blood cell per centageOrdered By: Stone Orozco on 08-12-2025 Nucleated RBC/100 WBC (Bld) [Ratio] 0 % 0-[address] [facility] Oncology Visit Reporton 07-16 Oncology Visit Report [facility] [address] [place] [address] [place] [address] OFFICE VISIT Date of Service: 08/12/25 1423 MR#: [id number] Acct: [id number] Name: DEBBIE BELCHER Rep #: [id number] : 1965 From: Stone Orozco MD Age/Sex: 60/F Location: [facility] Status: Signed HPI Subjective Date of Service 08/12/25 Chief Complaint Breast disease, increased risk for breast cancer History of Present Illness 58-year-old female perimenopausal, was on on estrogen, who presented with bloodstained discharge from the left nipple in December 2023. Later in January 2024 she noted some discharge from the right nipple but not bloody. She has no family history of breast cancer, her father had prostate and colon cancers. December 27, 2023 diagnostic mammogram: IMPRESSION: Stable bilateral diagnostic mammogram. With the patient''s history of a left bloody nipple discharge, correlation with ultrasound is recommended. December 27, 2023 left breast diagnostic ultrasound: IMPRESSION: 1 cm x 0.9 cm x 0.6 cm irregular nodule in the retroareolar region of the left breast. Biopsy recommended. ASSESSMENT CATEGORY: BIRADS Category 4: Suspicious - January 03, 2024 Left breast tissue, core biopsy: A few minute fragments of benign breast tissue with rare fragments suggestive of intraductal papilloma. Blood clots. Negative for atypia or malignancy January 25, 2024 Left central ductal lesion, excision; Florid intraductal hyperplasia with focal atypia. Fibrocystic change. Intraductal papillomatosis. Focal involutional change. Fibrosis, fat necrosis and reactive change consistent with previous biopsy. Banal microcalcifications February 06, 2024 right breast ultrasound: RIGHT Breast: The retroareolar region of the right breast was examined with ultrasound. There is a 1 mm x 1 mm x 1 mm echogenic structure within a dilated retroareolar duct. A similar appearing 4 mm x 4 mm x 3 mm nodule is also seen within a dilated duct suggestive of papillomas. IMPRESSION: Findings suggestive papillomas in the retroareolar ducts of the right breast as described. February 14, 2024 Right breast central duct, excision: Multifocal intraductal hyperplasia with focal atypia. Fibrocystic changes. Focal intraductal papillomatosis. Focal microcalcifications. Negative for malignancy. Treatment summary: Tamoxifen prophylaxis started February 2024 [facility] Medical History Primary hyperparathyroidism Hypercalcemia Carpal tunnel syndrome UTI (urinary tract infection) Atypical ductal hyperplasia, breast Abnormal mammogram Wears glasses Wears partial dentures Anxiety Thyroid disease Heartburn History of Holter monitoring History of echocardiogram History of stress test Cardiology follow-up encounter History of irregular heartbeat Ectopic atrial tachycardia Palpitations Hypothyroidism Surgical History History of breast surgery History of dilatation and curettage History of tonsillectomy Family History Father Colon cancer Skin cancer Thyroid disorder Prostate cancer Grandmother Breast cancer Mother Hypertension Lupus Osteoporosis Social History Smoking Status: Former smoker Tobacco: How many years used: 2 how long ago did patient quit smokin years ago alcohol intake: current alcohol intake frequency: holidays/special occasions only details: occasional substance use type: does not use caffeine: Yes Type: carbonated beverages Number of servings: 1 and coffee Number of servings: 2 ROS Constitutional Constitutional: Reports systems reviewed and no addt'l complaints, except as documented Eyes Eyes: Reports systems reviewed and no addt'l complaints, except as documented ENT HEENT: Reports systems reviewed and no addt'l complaints, except as documented Cardiovascular Cardiovascular: Reports systems reviewed and no addt'l complaints, except as documented; Denies chest pain Respiratory/Chest Respiratory/Chest: Denies cough or dyspnea Gastrointestinal Gastrointestinal: Reports systems reviewed and no addt'l complaints, except as documented Genitourinary Genitourinary: Reports other Details: Menses ceased in 2023 Musculoskeletal Musculoskeletal: Reports systems reviewed and no addt'l complaints, except as documented Integumentary Integumentary: Reports systems reviewed and no addt'l complaints, except as documented Neurologic Neurologic: Reports systems reviewed and no addt'l complaints, except as documented Psychiatric Psychiatric: Reports systems reviewed and no addt'l complaints, except as documented Endocrine Endocrinology: Reports systems reviewed and no addt' (more content not included)... Normal [facility] Platelet countOrdered By: Alise Orozco on 08-12-2025 Platelets (Bld) [#/Vol] 254 10*3/uL 150-[address] [facility] Potassium measurement (mass/ volume)Ordered By: Stone Orozco on 08-12-2025 Potassium (Unsp spec) [Mass/Vol] 4.0 mmol/L 3.3-5.[address] [facility] RBC Auto (Bld) [#/Vol]Ordere d By: Stone Orozco on 08-12-2025 RBC (Bld) [#/Vol] 4.42 10*6/uL 4.2-5.4 [facility] Serum creatinine measurement (mass/volume)Ordered By: Stone Orozco on 08-12-2025 Creatinine [Mass/Vol] 1.00 mg/dL 0.70-1.20 [facility] Serum globulin measurementOr dered By: Stone Orozco on 08-12-2025 Globulin (S) [Mass/Vol] 2.4 g/dL 2.2-4.2 [facility] Serum glucose measurement (m ass/volume)Ordered By: Stone Orozco on 08-12-2025 Glucose [Mass/Vol] 139 mg/dL High 70-99 [facility] Serum or plasma alanine rodrigez otransferase (ALT) measurementOrdered By: Stone Orozco on 08-12-2025 ALT [Catalytic activity/Vol] 21 U/L <[address] [facility] Serum or plasma albumin andrew urement (mass/volume)Ordered By: Stone Orozco on 08-12-2025 Albumin [Mass/Vol] 4.3 g/dL 3.5-5.0 [facility] Serum or plasma albumin/glob ulin mass ratioOrdered By: Stone Orozco on 08-12-2025 Albumin/Globulin [Mass ratio] 1.8 {ratio} 0.9-2.[address] [facility] Serum or plasma alkaline enoc sphatase measurementOrdered By: Stone Orozco on 08-12-2025 ALP [Catalytic activity/Vol] 114 U/L High 35-[address] [facility] Serum or plasma calcium andrew urement (mass/volume)Ordered By: Stone Orozco on 08-12-2025 Calcium [Mass/Vol] 10.9 mg/dL 7.6-11.0 [facility] Serum or plasma urea nitroge n measurement (mass/volume)Ordered By: Stone Orozco on 08-12-2025 Urea nitrogen [Mass/Vol] 12 mg/dL 4-[address] [facility] Sodium levelOrdered By: Herrera lamas Ernesto on 08-12-2025 Sodium [Moles/Vol] 139 mmol/L 133-145 [facility] Total proteinOrdered By: Jenaro vail Ernesto on 08-12-2025 Protein [Mass/Vol] 6.7 g/dL 5.9-8.4 [facility] White blood cell (WBC) count Ordered By: Stone Orozco on 08-12-2025 WBC (Bld) [#/Vol] 7.5 10*3/uL 4.4-11.0 [facility] Breast Bilateral W/O and Won 08-05-2025 Breast Bilateral W/O and W [facility] [address] [place] [address] Breast Bilateral W/O and W MR#: [id number] Acct: [id number] Name: DEBBIE BELCHER Rep #: [id number] : 1965 F 60 From: Juju Kenny PCP: Dr. Ciara Ellis, DO Status: DEP CLI Study: Breast Bilateral W/O and W Date of Exam: 08/05 Exam# [id number] Ordering Dr: Stone Orozco MD PROCEDURE: BREAST BILATERAL W/O AND W 08/05/2025 REASON FOR EXAM: ATYPICAL BREAST DUCTAL HYPERPLASIA History of bilateral breast lumpectomies. TECHNIQUE: Procedure Code: [id number] Modality: MR Procedure: BREAST BILATERAL W/O AND W CONTRAST: 14 cc of Clariscan COMPARISON: Breast MRI dated 08/07/2024 and breast ultrasound dated 02/11/2025. Mammogram studies dated 12/28/2024 and 02/06/2024 were reviewed. FINDINGS: TISSUE DENSITY: There are scattered areas of fibroglandular density. Background Parenchymal Enhancement: Minimal RIGHT Breast: No suspicious mass or non-mass enhancement. There is subtle architectural distortion at the post lumpectomy site. LEFT Breast: No suspicious mass or non-mass enhancement. There is subtle architectural distortion at the post lumpectomy site. Other Findings: No suspicious axillary or internal mammary lymph nodes. Visualized portions of the thoracic and abdominal viscera are unremarkable. MRI/Breast Bilateral W/O and W IMPRESSION: OVERALL FINAL ASSESSMENT BI-RADS 2: BENIGN RECOMMENDATION: Routine annual follow-up in 1 Year Patient should return in December 2025 for routine yearly screening mammography. Reading Location: [facility] CC: Dr. Ciara Ellis DO; Dr. Stone Orozco MD Mortgage Processing Clerk: Signed Normal [facility] Breast Complete Unilateralon 02-11-2025 Breast Complete Unilateral [facility] Imaging Services [address] [place] [address] Breast Complete Unilateral MR#: [id number] Acct: [id number] Name: DEBBIE BELCHER Rep #: [id number] : 1965 F 59 From: Juju Kenny PCP: Dr. Ciara Ellis DO Status: REG CLI Study: Breast Complete Unilateral Date of Exam: 02/11 Exam# [id number] Ordering Dr: Darek Campos PROCEDURE: BREAST COMPLETE UNILATERAL 02/11/2025 REASON FOR EXAM: F, Age 59 y/o , LEFT BREAST PAIN AND ITCHING COMPARISON: Prior mammogram study dated 12/28/2024. TECHNIQUE: Bilateral diagnostic digital breast tomosynthesis with 2D and 3D images. Computer aided detection. A complete left breast ultrasound was performed. All 4 quadrants were scanned as well as the retroareolar region. FINDINGS: ULTRASOUND: A complete left breast ultrasound was performed. There are some minimally ectatic ducts identified in the breast on the images submitted for review. There are benign-appearing cysts identified at the 1 o'clock, 3 cm from the nipple position measuring 3 x 2 x 2 mm, 1 o'clock, 4 cm from the nipple position measuring 4 x 3 x 3 mm, 1 o'clock, 3 cm from the nipple position measuring 4 x 3 x 2 mm, and retroareolar region measuring 8 x 6 x 3 mm. The cyst in the retroareolar region does have internal echoes. The cyst at the 1 o'clock, 3 cm from nipple position measuring 4 x 3 x 2 mm has a thin septation. The cyst may be the cause of her breast pain. No suspicious solid masses are seen to suggest malignancy. The skin is not abnormally thickened. There is no ultrasound abnormality seen to correlate to the itching sensation that the patient is describing. US/Breast Complete Unilateral IMPRESSION: BI-RADS 2: BENIGN RECOMMEND ANNUAL MAMMOGRAPHIC SCREENING. Reading Location: [id number] CC: Dr. Darek Campos MD; Dr. Ciara Ellis DO Mortgage Processing Clerk: Signed Normal [facility] SCRN MAMM (CAD)W/DORA BILATo n 12-28-2024 SCRN MAMM (CAD)W/DORA BILAT [facility] Imaging Services [address] [place] [address] SCRN MAMM (CAD)W/DORA BILAT MR#: [id number] Acct: [id number] Name: DEBBIE BELCHER Rep #: [id number] : 1965 F 59 From: Ney dominguez MD PCP: Dr. Ciara Ellis DO Status: REG CLI Study: SCRN MAMM (CAD)W/DORA BILAT Date of Exam: 12/15 03/08 Exam# [id number] Ordering Dr: Stone Orozco MD PROCEDURE: SCRN MAMM (CAD)W/DORA BILAT REASON FOR EXAM: F, Age 59 y/o , . History of prior bilateral retroareolar excisional breast biopsies. Grandmother with breast cancer. TECHNIQUE: Bilateral screening digital breast tomosynthesis with 2D and 3D images. Computer aided detection. COMPARISON: Comparison is made with prior MRI examination dated August 07, 2024. FINDINGS: There are scattered areas of fibroglandular density. The patient is status post bilateral retroareolar excisional breast biopsies with postoperative scarring. No suspicious masses, areas of developing architectural distortion, or suspicious calcifications. BI/SCRN MAMM (CAD)W/DORA BILAT IMPRESSION: BI-RADS 2: BENIGN. RECOMMEND ANNUAL MAMMOGRAPHIC SCREENING. Follow-up code: Routine Follow-up The patient will be notified of the results by letter. Reading Location: [id number] CC: Dr. Ciara Ellis DO; Dr. Stone Orozco MD Mortgage Processing Clerk: Signed Normal [facility] Endocrinology Visit Reporton 12-10-2024 Endocrinology Visit Report [facility] [address] [place] [address] OFFICE VISIT Date of Service: 12/10/24 MR#: [id number] Acct: [id number] Name: DEBBIE BELCHER Rep #: [id number] : 1965 Provider: Ian Johnson Age/Sex: 59/F Location: [facility] Status: Signed Intake Vital Signs 08/14/24 15:40 12/10/24 15:19 Height 5 ft 5 in 5 ft 5 in Weight: 170 lb 6 oz BMI 28.3 BP 130/86 H Blood Pressure Location Lt brachial Position Sitting Pulse 93 Pulse Source Monitor Pulse Oximetry (%) 95 Oxygen Delivery Method room air Intake Visit Reasons: Parathyroid Chief Complaint: Thyoid/parathyroid Allergies No Known Allergies Allergy (Verified 12/10/24 15:20) Medications ???Medication ???Instructions ???Recorded ???Confirmed ???Type sertraline 50 mg tablet 75 mg PO DAILY 09/14/19 11/05/24 History cholecalciferol (vitamin D3) 50 6,000 unit PO DAILY 11/15/19 11/05/24 History mcg (2,000 unit) capsule cetirizine 10 mg tablet (24Hour 10 mg PO DAILY 01/18/24 12/10/24 History Allergy) tamoxifen 20 mg tablet 20 mg PO DAILY #90 tabs 02/13/24 11/05/24 Rx diltiazem HCl 120 mg 120 mg PO DAILY #90 caps 04/10/24 11/05/24 Rx capsule,extended release 24 hr levothyroxine 150 mcg tablet 137 mcg PO DAILY 11/05/24 11/05/24 History [facility] Medical History (Updated 12/11/24 @ 07:[address] Jacoby Khan MD) Primary hyperparathyroidism Hypercalcemia Carpal tunnel syndrome UTI (urinary tract infection) Atypical ductal hyperplasia, breast Abnormal mammogram Wears glasses Wears partial dentures Anxiety Thyroid disease Heartburn History of Holter monitoring History of echocardiogram History of stress test Cardiology follow-up encounter History of irregular heartbeat Ectopic atrial tachycardia Palpitations Hypothyroidism Surgical History History of breast surgery History of dilatation and curettage History of tonsillectomy Family History (Updated 11/05/24 @ 14:25 by Jeromy Padilla RN) Father Colon cancer Skin cancer Thyroid disorder Prostate cancer Grandmother Breast cancer Mother Hypertension Lupus Osteoporosis Social History Smoking Status: Former smoker Tobacco: How many years used: 2 how long ago did patient quit smokin years ago alcohol intake: current alcohol intake frequency: holidays/special occasions only details: occasional substance use type: does not use caffeine: Yes Type: carbonated beverages Number of servings: 1 and coffee Number of servings: 2 HPI HPI Chief Complaint: Thyoid/parathyroid Details: DEBBIE BELCHER, is a 59 F who presents to the office today for evaluation and management of thyroid and parathyroid disease. 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 She is taking 137 mcg 6 days per week. She is unaware of the rules on how to take levothyroxine. She had a TSH of 0.116 in September and then 2.2 this month after a dose reduction. Calcium level in 2022 was 9.5 and then 10.2 in August, ionized calcium elevated at 5.55 PTH 136.3 24 hr urine calcium 330 Vitamin D 80.6 She had a normal DEXA 12.6.24 She is taking 6,000 IU of vitamin D daily, in the morning. No history of kidney stones. No family history of hypercalcemia. Positive family history of thyroid disease. ROS Const Constitutional: No fatigue, weight change or change in appetite Eyes Eyes: No change in vision ENT ENT: No dizziness/vertigo or difficulty swallowing Cardio Cardiology: No chest pain at rest, chest pain with exertion, shortness of breath or palpitations Musc Musculoskeletal: No abnormal gait, joint pain, numbness or tingling Neuro Neurology: No abnormal gait, memory loss, numbness or tingling Psych Psychiatric: No change in appetite, No memory loss and No Thoughts of harming yourself/Others Resp Respiratory: No cough, chest congestion or shortness of breath Gastro GI: No abdominal pain, constipation, diarrhea or difficulty swallowing Genitourinary-Female: No burning urination Skin Skin: No itchy eyes or wounds Endo Endocrine: No fatigue or weight change Aller/Imm Allergy/Immunologic: No itchy eyes Exam Const General: cooperative, healthy appearing, comfortable, no acute distress, well developed and not cushingoid Nutritional Appearance: well nourished Orientation: alert, awake and oriented x3 HENMT Head: normal to inspection Ears: hearing grossly normal bilaterally Nose: external nose normal Mouth: oral mucosae normal Eyes General: appearance normal, both eyes and all related structures Alignment and Position: alignment normal Periorbital: periorbital findings normal Eyelids: eyelids no (more content not included)... Normal [facility] Direct serum free thyroxine (FT4) measurementOrdered By: Ciara Ellis on 11-23-2024 Free T4 [Mass/Vol] 1.04 ng/dL 0.76-1.46 [facility] Free T3on 11-23-2024 Free T3 [Mass/Vol] 2.5 pg/mL Normal 2.18-3.98 [facility] Comment on above: Performed By: #### L 501.9520, L506.0400, L501.03284 #### [facility] Laboratory [address] [place], [address] Free G2Nghzovw By: Ciara kumar on 11-23-2024 Free Triiodothyronine (T3) pg/dL 2.5 pg/mL 2.18-3.[address] [facility] T4 Free Directon 11-23-2024 T4 FREE DIRECT 1.04 ng/dL Normal 0.76-1.[address] [facility] Comment on above: Performed By: #### L 100.0100, L500.4050 #### [facility] [address] [place], [address] TSH QnOrdered By: Ciara Ellis on 11-23-2024 Thyroid Stimulating Hormone (TSH) 2.250 uIU/mL 0.358-3.[address] [facility] Thyroid Stim Hormone (TSH)on 11-23-2024 TSH 2.250 uIU/mL Normal 0.358-3.[address] [facility] Comment on above: Performed By: #### L 501.9520, L506.0400, L501.94303 #### [facility] [address] [place], [place], [address] Dexa Bone Density Studyon Dexa Bone Density Study [facility] Imaging Services [address] [place], [place] [address] Dexa Bone Density Study MR#: [id number] Acct: [id number] Name: DEBBIE BELCHER Rep #: [id number] : 1965 F 59 From: Ney dominguez MD PCP: Dr. Ciara Ellis DO Status: [facility] Study: Dexa Bone Density Study Date of Exam: 10/19/24 Exam# [id number] Ordering Dr: Ciara Ellis DO [id number] STUDY: DUAL ENERGY X-RAY ABSORPTIOMETRY / DXA REASON FOR EXAM: Female, 59 years old. 252.01Primary hyperparathyroid DENSITY REASON FOR EXAM TECHNIQUE: Bone Mineral Density (BMD) measurements of lumbar spine and bilateral hips were obtained. COMPARISON: None. FINDINGS: Lumbar Spine (L1-L4): g/cm2 (0.938) / T-score (-1.0) / Z-score (0.2) Findings are suggestive of osteopenia with a low fracture risk. Left Femur Total: g/cm2 (0.917) / T-score (-0.2) / Z-score (0.6) Left Femoral Neck: g/cm2 (0.727) / T-score (-1.1) / Z-score (0.1) Right Femur Total: g/cm2 (0.962) / T-score (0.2) / Z-score (1.0) Right Femoral Neck: g/cm2 (0.800) / T-score (-0.4) / Z-score (0.7) BD/Dexa Bone Density Study IMPRESSION: The patient is considered osteopenic as outlined below according to World Ross Organization (WHO) criteria with a low fracture risk. Reference Information: The T-score is the number of standard deviations above or below the standard which is normal for young adults at their peak bone mineral density. The World Health Organization (WHO) interprets the T-scores as follows: Above -1 Normal bone density Between -1 and -2.5 Osteopenia Equal to / or below -2.5 Osteoporosis As a practical clinical guideline, osteopenia may be graded as follows: Mild -1 through -1.5 Moderate -1.6 through -2.0 Severe -2.1 through -2.4 The Z-score is the number of standard deviations above or below age-matched controls. A Z-score of less than -1.5 would be considered abnormal. References: 1. NIH Osteoporosis and Related Bone Diseases www osteo.org 2. International Society for Clinical Densitometry www iscd.org 3. National Osteoporosis Foundation www nof.org Electronically Signed: Ney Durant MD at 12:04 EST Reading Location ID and State: [address] [place] [address] , Service support , CC: ; Dr. Ciara Ellis DO Mortgage Processing Clerk: Signed Normal [facility] Calcium, Urine 24HRon 2023 24HR UR Calcium 330.4 mg/24 HR Normal 42.0-353.0 [facility] Comment on above: Performed By: #### L 500.4923 ####[facility] [id number] [place], [place], [address] Calcium UR pH [address] [facility] Comment on above: Performed By: #### L 500.7000 ####[facility] [id number] [place], [address] UR Collect Time 24.0 HR Normal 24.0-24.[address] [facility] Comment on above: Performed By: #### L 500.7000 ####[facility] [id number] [place], [address] UR Total Volume 2800 ml Normal [facility] Comment on above: Performed By: #### L 500.7000 ####[facility] [id number] [place], [id number] Urine Calcium 11.8 mg/dL Normal Not Estab. [facility] Comment on above: Performed By: #### L 500.7000 ####[facility] [id number] [place], [address] Miscellaneous Lab Procedureo n 09-24-2024 [facility] LAB TEST Normal [facility] Comment on above: Order Comment: HOSEA DAVILA [id number] PTHrP Result Comment: TEST RESULTS LIMITS PTHrP (PTH-Related Peptide) <2.0 pmol/L This test was developed and its performance characteristics determined by [facility]. It has not been cleared or approved by the Food and Drug Administration. Reference Range: All Ages: <2.0 The PTHrP assay should not be used to exclude cancer or screen tumor patients for humoral hypercalcemia of malignancy (HHM). The results should always be assessed in conjunction with the patient's medical history, clinical examination, and other findings. If test results are clinically discordant, please contact the laboratory. TESTING PERFORMED AT [facility]. ORIGINAL REPORT ON FILE IN LAB CONTAINS ADDITIONAL TEST SITE INFORMATION. Performed By: #### L 100.0100, L500.4050 #### [facility] [address] [place], [address] Vitamin D 1,25-Dihydroxyon 1 11-20-2023 VIT D 1,25 DIHY 39.5 pg/mL Normal 24.8-81.[address] [facility] Comment on above: Result Comment: Perf ormed at: [facility] [address] [id number] Firmware Architect: Deyvi Laura MD, Phone: [phone] Performed By: #### L 100.0100, L500.4050 #### [facility] [address] [place], [address] Comprehensive Metabolic Prof ilon 09-17-2024 Albumin [Mass/Vol] 3.9 g/dL Normal 3.2-5.0 [facility] Comment on above: Performed By: #### L 100.0100, L500.4050 #### [facility] [address] [place], [address] Albumin/Globulin [Mass ratio] 1.2 {ratio} Normal 0.9-2.[address] [facility] Comment on above: Performed By: #### L 100.0100, L500.4050 #### [facility] [address] [place], [address] ALK P 84 U/L Normal 45-[address] [facility] Comment on above: Performed By: #### L 100.0100, L500.4050 #### [facility] [address] [place], [address] ALT [Catalytic activity/Vol] 22 U/L Normal 13-[address] [facility] Comment on above: Performed By: #### L 100.0100, L500.4050 #### [facility] [address] [place], [address] AST [Catalytic activity/Vol] 18 U/L Normal 15-[address] [facility] Comment on above: Performed By: #### L 100.0100, L500.4050 #### [facility] [address] [place], [address] Bilirubin [Mass/Vol] 0.30 mg/dL Normal 0.20-1.00 [facility] Comment on above: Result Comment: For patients on eltrombopag therapy, use of Dimension [place] TBIL is not recommended. Performed By: #### L 100.0100, L500.4050 #### [facility] [address] [place], [address] BUN/CRE 12.8 RATIO Normal 10-[address] [facility] Comment on above: Performed By: #### L 100.0100, L500.4050 #### [facility] [address] [place], [address] CA,Total 10.0 mg/dL Normal 8.5-10.[address] [facility] Comment on above: Performed By: #### L 100.0100, L500.4050 #### [facility] [address] [place], [address] Chloride [Moles/Vol] 106 mmol/L Normal 98-107 [facility] Comment on above: Performed By: #### L 100.0100, L500.4050 #### [facility] [address] [place], [address] CO2 [Moles/Vol] 24.0 mmol/L Normal 21.0-32.[address] [facility] Comment on above: Performed By: #### L 100.0100, L500.4050 #### [facility] [address] [place], [address] Creatinine [Mass/Vol] 0.94 mg/dL Normal 0.55-1.02 [facility] Comment on above: Result Comment: The validity of the calculated GFR GFRAA in patients over 70 years has not been determined. Clinical correlation is essential. Performed By: #### L 100.0100, L500.4050 #### [facility] [address] [place], [address] EST GFR - AA 79 mL/min Normal >[address] [facility] Comment on above: Result Comment: Afri can Syrian GFR Calc Performed By: #### L 100.0100, L500.4050 #### [facility] [address] [place], [address] GAP 9 Normal 5-[address] [facility] Comment on above: Performed By: #### L 100.0100, L500.4050 #### [facility] [address] [place], [address] GFR/1.73 sq M.predicted among non-blacks MDRD (S/P/Bld) [Vol rate/Area] 65 mL/min/{1.73_m2} Normal >[address] [facility] Comment on above: Result Comment: Non- GFR Calc Performed By: #### L 100.0100, L500.4050 #### [facility] [address] [place], [address] Globulin (S) [Mass/Vol] 3.3 g/dL Normal 2.2-4.2 [facility] Comment on above: Performed By: #### L 100.0100, L500.4050 #### [facility] [address] [place], [address] Glucose [Mass/Vol] 91 mg/dL Normal 74-106 [facility] Comment on above: Performed By: #### L 100.0100, L500.4050 #### [facility] [address] [place], [address] Potassium [Moles/Vol] 4.0 mmol/L Normal 3.5-5.1 [facility] Comment on above: Performed By: #### L 100.0100, L500.4050 #### [facility] [address] [place], [address] Sodium [Moles/Vol] 139 mmol/L Normal 136-145 [facility] Comment on above: Performed By: #### L 100.0100, L500.4050 #### [facility] [address] [place], [address] T PROT 7.2 g/dL Normal 6.4-8.[address] [facility] Comment on above: Performed By: #### L 100.0100, L500.4050 #### [facility] [address] [place], [address] Urea nitrogen [Mass/Vol] 12 mg/dL Normal 7-[address] [facility] Comment on above: Performed By: #### L 100.0100, L500.4050 #### [facility] [address] [place], [address] Free T3on 09-17-2024 Free T3 [Mass/Vol] 2.9 pg/mL Normal 2.18-3.98 [facility] Comment on above: Performed By: #### L 100.0100, L500.4050 #### [facility] [address] [place], [address] L501.2276on 09-17-2024 Ionized Calcium 5.55 mg/dL High 4.36-5.[address] [facility] Comment on above: Performed By: #### L 100.0100, L500.4050 #### [facility] [address] [place], [address] PTHINon 09-17-2024 PTH 136.3 pg/mL High 18.4-80.[address] [facility] Comment on above: Performed By: #### L 100.0100, L500.4050 #### [facility] [address] [place], [address] T4 Free Directon 09-17-2024 T4 FREE DIRECT 1.31 ng/dL Normal 0.76-1.[address] [facility] Comment on above: Performed By: #### L 100.0100, L500.4050 #### [facility] [address] [place], [address] Thyroid Stim Hormone (TSH)on 09-17-2024 TSH 0.116 uIU/mL Low 0.358-3.[address] [facility] Comment on above: Performed By: #### L 100.0100, L500.4050 #### [facility] [address] [place], [address] Vitamin D,25 Hydroxyon 09-17 Vitamin D 25-OH 80.6 ng/mL Normal [facility] Comment on above: Result Comment: Roxanna min D 25(OH) Status Range Deficiency <20 ng/mL (50nmol/L) Insufficiency 20 - 30 ng/mL (50 - 75 nmol/L) Sufficiency 30 - 100 ng/mL (75 - 250 nmol/L) Toxicity >100 ng/mL (>250 nmol/L) Performed By: #### L 100.0100, L500.4050 #### [facility] [address] [place], [address] Laboratory - Chemistry and C hemistry - challengeOrdered By: Gabriel Pathak on 02-14-2024 HCG ( test) Ql (U) Negative [facility] Comment on above: Very dilute urine sp ecimens, as indicated by a low specificgravity, may not contain direct sales representative levels of hCG. If is still suspected, a first morning urinespecimen should be collected 48 hours later and tested. Laboratory - Chemistry and C hemistry - challengeOrdered By: Emigdio Goodwin on 01-25-2024 HCG ( test) Ql (U) Negative [facility] Comment on above: Very dilute urine sp ecimens, as indicated by a low specificgravity, may not contain direct sales representative levels of hCG. If is still suspected, a first morning urinespecimen should be collected 48 hours later and tested. Laboratory - Chemistry and C hemistry - challengeOrdered By: Ciara Ellis on 09-05-2023 Free T4 [Mass/Vol] 1.03 ng/dL 0.76-1.46 [facility] No Panel InformationOrdered By: Ciara Ellis on 09-05-2023 Free Triiodothyronine (T3) pg/dL 2.3 pg/mL 2.18-3.[address] [facility] Thyroid Stimulating Hormone (TSH) 2.66 uIU/mL 0.358-3.[address] [facility] Laboratory - Chemistry and C hemistry - challengeOrdered By: Ciara Ellis on 05-28-2023 Free T4 [Mass/Vol] 1.05 ng/dL 0.76-1.46 [facility] No Panel InformationOrdered By: Ciara Ellis on 05-28-2023 Free Triiodothyronine (T3) pg/dL 2.5 pg/mL 2.18-3.[address] [facility] Thyroid Stimulating Hormone (TSH) 6.96 uIU/mL 0.358-3.[address] [facility] Cervical or vagninal specime n microscopic examination by cytology stain (reported asOrdered By: Dr. Ellis on 02-11-2023 Cytology report Cyto stain Doc (Cvx/Vag) Comment . [facility] Comment on above: The Pap smear is a s creening test designed to aid in thedetection of premalignant and malignant conditions of theuterine cervix. It is not a diagnostic procedure andshould not be used as the sole means of detecting cervicalcancer. Both false-positive and false-negative reports dooccur. Laboratory - CytologyOrdered By: Dr. Ellis on 02-11-2023 Drying Room Operator Cyto stain Nom (Cvx/Vag) [ID] Comment . [facility] Comment on above: Mikayla Ramirez, Cyto technologist (ASCP) Laboratory - Miscellaneous t estsOrdered By: Dr. Ellis on 02-11-2023 Service comment (Unsp spec) [Interp] Comment . [facility] Comment on above: This liquid based Th inPrep(R) pap test was screened withthe use of an image guided system. Service comment (Unsp spec) [Interp] . . [facility] No Panel InformationOrdered By: Dr. Ellis on 02-11-2023 Human Papillomavirus Screen Comment . [facility] Comment on above: The HPV DNA reflex c riteria were not met with this specimenresult therefore, no HPV testing was performed.Performed at: [facility] [address] [id number] Director: Beverly Nguyen MD, Phone: [phone] Pathology report final diagnosis Narrative Comment . [facility] Comment on above: NEGATIVE FOR INTRAEP ITHELIAL LESION OR MALIGNANCY. Absolute lymphocyte countOrd ered By: HEALTH ASSESSMENT on 02-08-2023 Lymphocytes Auto (Unsp spec) [#/Vol] 2.33 10*3/uL 0.83-4.[address] [facility] Absolute reticulocyte countO rdered By: HEALTH ASSESSMENT on 02-08-2023 Reticulocytes (Bld) [#/Vol] 0.00 10*3/uL 0-[address] [facility] Basophil percentageOrdered B y: HEALTH ASSESSMENT on 02-08-2023 Basophil percentage 2.5 mg/dL 2.5-4.9 [facility] Bilirubin [Mass/Vol] 0.40 mg/dL 0.20-1.00 [facility] Comment on above: For patients on eltr ombopag therapy, use of Dimension [place] TBIL is not recommended. Chloride [Moles/Vol] 104 mmol/L 98-107 [facility] Cholesterol [Mass/Vol] 205 mg/dL <200 [facility] Comment on above: <200 mg/dL Desirable 200-240 mg/dL Borderline >240 mg/dL High Risk Glucose [Mass/Vol] 96 mg/dL 74-106 [facility] LDH [Catalytic activity/Vol] 130 U/L 84-[address] [facility] Neutrophils (Bld) [#/Vol] 3.9 10*3/uL 2.0-7.[address] [facility] Potassium [Moles/Vol] 4.2 mmol/L 3.5-5.1 [facility] Protein [Mass/Vol] 7.0 g/dL 6.4-8.2 [facility] Sodium [Moles/Vol] 136 mmol/L 136-145 [facility] Triglyceride [Mass/Vol] 107 mg/dL <199 [facility] Comment on above: The drugs N-Acetylcy steine and Metamizole may falsely depress this assay.Serum Triglycerides Reference Interval Normal <150 mg/dL Borderline high 150 - 199 mg/dL High 200 - 499 mg/dL Very High > or = 500 mg/dL WBC (Bld) [#/Vol] 7.1 10*3/uL 4.4-11.0 [facility] Bilirubin Test strip Ql (U)O rdered By: HEALTH ASSESSMENT on 02-08-2023 Bilirubin Ql (U) Negative Negative [facility] Blood erythrocytes count (nu mber/volume)Ordered By: HEALTH ASSESSMENT on 02-08-2023 RBC (Bld) [#/Vol] 4.64 10*6/uL 4.2-5.4 [facility] Blood hemoglobin measurement (mass/volume)Ordered By: HEALTH ASSESSMENT on 02-08-2023 Hemoglobin (Bld) [Mass/Vol] 13.4 g/dL 12.0-15.[address] [facility] Blood platelet mean volumeOr dered By: HEALTH ASSESSMENT on 02-08-2023 Platelet mean volume (Bld) [Entitic vol] 9.8 fL 6.2-12.[address] [facility] Determination of erythrocyte mean corpuscular volume (MCV)Ordered By: HEALTH ASSESSMENT on 02-08-2023 MCV (RBC) [Entitic vol] 89.2 fL 81-99 [facility] Direct bilirubinOrdered By: HEALTH ASSESSMENT on 02-08-2023 Bilirubin.direct [Mass/Vol] 0.13 mg/dL 0.00-0.[address] [facility] Hematocrit Auto (Bld) [Volum e fraction]Ordered By: HEALTH ASSESSMENT on 02-08-2023 Hematocrit (Bld) [Volume fraction] 41.4 % 37-[address] [facility] Ketones Test strip Ql (U)Ord ered By: HEALTH ASSESSMENT on 02-08-2023 Ketones Ql (U) Negative Negative [facility] Laboratory - Chemistry and C hemistry - challengeOrdered By: HEALTH ASSESSMENT on 02-08-2023 ALP [Catalytic activity/Vol] 69 U/L 45-[address] [facility] ALT [Catalytic activity/Vol] 22 U/L 13-[address] [facility] Cholesterol.total/Dorcas sterol in HDL [Mass ratio] 2.70 {ratio} [facility] CO2 [Moles/Vol] 29.0 mmol/L 21.0-32.[address] [facility] Globulin (S) [Mass/Vol] 3.4 g/dL 2.2-4.2 [facility] Urea nitrogen/Creatinine [Mass ratio] 18.6 mg/mg 10-[address] [facility] Laboratory - Hematology and Cell countsOrdered By: HEALTH ASSESSMENT on 02-08-2023 Erythrocyte distribution width (RBC) [Entitic vol] 41.1 fL 35.1-43.[address] [facility] Erythrocyte distribution width (RBC) [Ratio] 12.6 % 11.6-14.[address] [facility] MCH (RBC) [Entitic mass] 28.9 pg 27.0-32.[address] [facility] Nucleated RBC/100 WBC (Bld) [Ratio] 0 % 0-[address] [facility] MCHC Auto (RBC) [Mass/Vol]Or dered By: HEALTH ASSESSMENT on 02-08-2023 MCHC (RBC) [Mass/Vol] 32.4 g/dL 32-36 [facility] Nitrite Test strip Ql (U)Ord ered By: HEALTH ASSESSMENT on 02-08-2023 Nitrite Ql (U) Negative Negative [facility] No Panel InformationOrdered By: HEALTH ASSESSMENT on 02-08-2023 Estimated GFR (MDRD) Amer 72 mL/min >[address] [facility] Comment on above: GFR Calc Estimated GFR (MDRD) Non-Af Amer 60 mL/min >[address] [facility] Comment on above: Non- GFR Calc Platelets bldOrdered By: SHELLY [facility] ASSESSMENT on 02-08-2023 Platelets (Bld) [#/Vol] 322 10*3/uL 150-[address] [facility] Protein Test strip Ql (U)Ord ered By: HEALTH ASSESSMENT on 02-08-2023 Protein Ql (U) Negative Negative [facility] Segmented neutrophils/100 WB C Auto (Bld)Ordered By: HEALTH ASSESSMENT on 02-08-2023 Segmented neutrophils/100 WBC (Bld) 54.5 % 47-[address] [facility] Serum or plasma albumin andrew urement (mass/volume)Ordered By: HEALTH ASSESSMENT on 02-08-2023 Albumin [Mass/Vol] 3.6 g/dL 3.2-5.0 [facility] Serum or plasma albumin/glob ulin mass ratioOrdered By: HEALTH ASSESSMENT on 02-08-2023 Albumin/Globulin [Mass ratio] 1.1 {ratio} 0.9-2.[address] [facility] Serum or plasma calcium andrew urement (mass/volume)Ordered By: HEALTH ASSESSMENT on 02-08-2023 Calcium [Mass/Vol] 9.5 mg/dL 8.5-10.1 [facility] Serum or plasma cholesterol in HDL measurement (mass/volume)Ordered By: HEALTH ASSESSMENT on 02-08-2023 Cholesterol in HDL [Mass/Vol] 77 mg/dL >[address] [facility] Comment on above: The drugs N-Acetylcy steine and Metamizole may falsely depress this assay. Reference Range HDL <40 mg/dL Low HDL Cholesterol HDL >or= 60 mg/dL High HDL Cholesterol Serum or plasma cholesterol in VLDL measurement (mass/volume)Ordered By: HEALTH ASSESSMENT on 02-08-2023 Cholesterol in VLDL [Mass/Vol] 21 mg/dL 5-[address] [facility] Serum or plasma creatinine m easurement (mass/volume)Ordered By: HEALTH ASSESSMENT on 02-08-2023 Creatinine [Mass/Vol] 1.02 mg/dL 0.55-1.02 [facility] Comment on above: The validity of the calculated GFR & GFRAA in patients over 70 years has not been determined. Clinical correlation is essential. Serum or plasma low density lipoprotein (LDL) cholesterol measurement (mass/volume)Ordered By: HEALTH ASSESSMENT on 02-08-2023 Cholesterol in LDL [Mass/Vol] 107 mg/dL 0-[address] [facility] Serum or plasma urea nitroge n measurement (mass/volume)Ordered By: HEALTH ASSESSMENT on 02-08-2023 Urea nitrogen [Mass/Vol] 19 mg/dL 7-[address] [facility] Serum or plasma uric acid me asurement (mass/volume)Ordered By: HEALTH ASSESSMENT on 02-08-2023 Urate [Mass/Vol] 4.0 mg/dL 2.6-6.[address] [facility] Comment on above: The drugs N-Acetylcy steine and Metamizole may falsely depress this assay. Thin prep Papanicolaou smear with manual screeningOrdered By: HEALTH ASSESSMENT on 02-08-2023 Thin prep Papanicolaou smear with manual screening 17 U/L 15-[address] [facility] Thin prep Papanicolaou smear with manual screening 3 5-[address] [facility] Urine blood detectionOrdered By: HEALTH ASSESSMENT on 02-08-2023 RBC Ql (U) 50 /ul Negative [facility] Urine clarityOrdered By: A LT ASSESSMENT on 02-08-2023 Clarity (U) Clear Clear [facility] Urine color determinationOrd ered By: HEALTH ASSESSMENT on 02-08-2023 Color (U) Yellow Yellow [facility] Urine glucose detectionOrder ed By: HEALTH ASSESSMENT on 02-08-2023 Glucose Ql (U) Normal mg/dl Normal [facility] Urine leukocyte esterase det ection by dipstickOrdered By: HEALTH ASSESSMENT on 02-08-2023 Leukocyte esterase Test strip Ql (U) Negative Negative [facility] Urine pHOrdered By: HEALTH A SSESSMENT on 02-08-2023 pH (U) 7.0 [pH] 5.0 - 8.[address] [facility] Urine specific gravity measu rementOrdered By: HEALTH ASSESSMENT on 02-08-2023 Specific gravity (U) [Rel density] 1.015 1.002-1.[address] [facility] Urobilinogen Auto test strip Ql (U)Ordered By: HEALTH ASSESSMENT on 02-08-2023 Urobilinogen Ql (U) Normal mg/dl Normal [facility] No Panel InformationOrdered By: [facility] on 11-17-2022 Rubella IgG Antibody Reactive Nonreactive [facility] Comment on above: Antibody Results Int erpretation of Immune Status Non Reactive Presumed Non-Immune Equivocal Equivocal Reactive Presumed Immune Serum measles virus IgG anti body assay (units/volume)Ordered By: [employer] [facility] on 11-17-2022 MeV IgG Qn (S) 60.5 AU/mL Immune >16.[address] [facility] Comment on above: Negative <13.5 Equiv ocal 13.5 - 16.4 Positive >16.4Presence of antibodies to Rubeola is presumptive evidenceof immunity except when acute infection is suspected.Performed at: [address] [id number] Director: Ramesh Newman PhD, Phone: [phone] Serum mumps virus IgG antibo dy assay (units/volume)Ordered By: [employer] on 11-17-2022 MuV IgG Qn (S) 88.5 AU/mL Immune >10.[address] [facility] Comment on above: Negative <9.0 Equivo tiara 9.0 - 10.9 Positive >10.9A positive result generally indicates past exposure toMumps virus or previous vaccination. Vital Signs Date Time Vital Sign Value Performing Clinician Faci lity 08-12-2025 14:27-0400 Body height 165.[address] Ciara Ellis DO Work Phone: [facility] 08-12-2025 14:27-0400 Body mass index (BMI) [Ratio] 26.4 kg/m2 Dr. Ciara Ellis DO Work Phone: [facility] 08-12-2025 14:27-0400 Body temperature 97.8 [degF] Dr. Ciara Ellis DO Work Phone: [facility] 08-12-2025 14:27-0400 Body weight 72.[address] Ciara Ellis DO Work Phone: [facility] 08-12-2025 14:27-0400 Diastolic blood pressure 64 mm[Hg] Dr. Ciara Ellis DO Work Phone: [facility] 08-12-2025 14:27-0400 Heart rate 98 /min Dr. Ciara Ellis DO Work Phone: [facility] 08-12-2025 14:27-0400 Respiratory rate 16 /min Dr. Ciara Ellis DO Work Phone: [facility] 08-12-2025 14:27-0400 SaO2% (BldA) [Mass fraction] 94 % Dr. Ciara Ellis DO Work Phone: [facility] 08-12-2025 14:27-0400 Systolic blood pressure 99 mm[Hg] Dr. Ciara Ellis DO Work Phone: [facility] 12-10-2024 15:19-0500 Body height 165.[address] Ciara Ellis DO Work Phone: [facility] 12-10-2024 15:19-0500 Body mass index (BMI) [Ratio] 28.3 kg/m2 Dr. Ciara Ellis DO Work Phone: [facility] 12-10-2024 15:19-0500 Body weight 77.[address] Ciara Ellis DO Work Phone: [facility] 12-10-2024 15:19-0500 Diastolic blood pressure 86 mm[Hg] Dr. Ciara Ellis DO Work Phone: [facility] 12-10-2024 15:19-0500 Heart rate 93 /min Dr. Ciara Ellis DO Work Phone: [facility] 12-10-2024 15:19-0500 SaO2% (BldA) [Mass fraction] 95 % Dr. Ciara Ellis DO Work Phone: [facility] 12-10-2024 15:19-0500 Systolic blood pressure 130 mm[Hg] Dr. Ciara Ellis DO Work Phone: [facility] 02-14-2024 08:10-0400 Body temperature 98 [degF] Dr. Ciara Ellis Work Phone: [facility] 02-14-2024 08:10-0400 Diastolic blood pressure 59 mm[Hg] Dr. Ciara Ellis Work Phone: [facility] 02-14-2024 08:10-0400 Heart rate 86 /min Dr. Ciara Ellis Work Phone: [facility] 02-14-2024 08:10-0400 Respiratory rate 18 /min Dr. Ciara Ellis Work Phone: [facility] 02-14-2024 08:10-0400 SaO2% (BldA) [Mass fraction] 94 % Dr. Ciara Ellis Work Phone: [facility] 02-14-2024 08:10-0400 Systolic blood pressure 112 mm[Hg] Dr. Ciara Ellis Work Phone: [facility] 02-14-2024 06:42-0400 Body height 165.[address] Ciara Ellis Work Phone: [facility] 02-14-2024 06:42-0400 Body mass index (BMI) [Ratio] 28.6 kg/m2 Dr. Ciara Ellis Work Phone: [facility] 02-14-2024 06:42-0400 Body weight 78.[address] Ciara Ellis Work Phone: [facility] 02-13-2024 15:56-0400 Body mass index (BMI) [Ratio] 28.6 kg/m2 Dr. Ciara Ellis Work Phone: [facility] 02-13-2024 15:56-0400 Body temperature 98.1 [degF] Dr. Ciara Ellis Work Phone: [facility] 02-13-2024 15:56-0400 Body weight 78.[address] Ciara Ellis Work Phone: [facility] 02-13-2024 15:56-0400 Diastolic blood pressure 84 mm[Hg] Dr. Ciara Ellis Work Phone: [facility] 02-13-2024 15:56-0400 Heart rate 67 /min Dr. Ciara Ellis Work Phone: [facility] 02-13-2024 15:56-0400 Respiratory rate 18 /min Dr. Ciara Ellis Work Phone: [facility] 02-13-2024 15:56-0400 SaO2% (BldA) [Mass fraction] 98 % Dr. Ciara Ellis Work Phone: [facility] 02-13-2024 15:56-0400 Systolic blood pressure 131 mm[Hg] Dr. Ciara Ellis Work Phone: [facility] 01-25-2024 08:40-0400 Body temperature 97.4 [degF] Dr. Ciara Ellis Work Phone: [facility] 01-25-2024 08:40-0400 Diastolic blood pressure 75 mm[Hg] Dr. Ciara Ellis Work Phone: [facility] 01-25-2024 08:40-0400 Heart rate 76 /min Dr. Ciara Ellis Work Phone: [facility] 01-25-2024 08:40-0400 Respiratory rate 16 /min Dr. Ciara Ellis Work Phone: [facility] 01-25-2024 08:40-0400 SaO2% (BldA) [Mass fraction] 95 % Dr. Ciara Ellis Work Phone: [facility] 01-25-2024 08:40-0400 Systolic blood pressure 117 mm[Hg] Dr. Ciara Ellis Work Phone: [facility] 01-25-2024 07:03-0400 Body height 165.[address] Ciara Ellsi Work Phone: [facility] 01-25-2024 07:03-0400 Body mass index (BMI) [Ratio] 28.9 kg/m2 Dr. Ciara Ellis Work Phone: [facility] 01-25-2024 07:03-0400 Body weight 78.[address] Ciara Ellis Work Phone: [facility] 01-02-2024 13:34-0500 Body temperature 97.4 [degF] Dr. Ciara Ellis Work Phone: [facility] 01-02-2024 13:34-0500 Diastolic blood pressure 86 mm[Hg] Dr. Ciara Ellis Work Phone: [facility] 01-02-2024 13:34-0500 Heart rate 92 /min Dr. Ciara Ellis Work Phone: [facility] 01-02-2024 13:34-0500 Respiratory rate 17 /min Dr. Ciara Ellis Work Phone: [facility] 01-02-2024 13:34-0500 SaO2% (BldA) [Mass fraction] 97 % Dr. Ciara Ellis Work Phone: [facility] 01-02-2024 13:34-0500 Systolic blood pressure 138 mm[Hg] Dr. Ciara Ellis Work Phone: [facility] 06-10-2023 15:24-0400 Body height 165.[address] Ciara Ellis Work Phone: [facility] 06-10-2023 15:24-0400 Body mass index (BMI) [Ratio] 28.9 kg/m2 Dr. Ciara Ellis Work Phone: [facility] 06-10-2023 15:24-0400 Body weight 78.[address] Ciara Ellis Work Phone: [facility] 06-10-2023 15:24-0400 Diastolic blood pressure 78 mm[Hg] Dr. Ciara Ellis Work Phone: [facility] 06-10-2023 15:24-0400 Heart rate 64 /min Dr. Ciara Ellis Work Phone: [facility] 06-10-2023 15:24-0400 Respiratory rate 18 /min Dr. Ciara Ellis Work Phone: [facility] 06-10-2023 15:24-0400 SaO2% (BldA) [Mass fraction] 98 % Dr. Ciara Ellis Work Phone: [facility] 06-10-2023 15:24-0400 Systolic blood pressure 128 mm[Hg] Dr. Ciara Ellis Work Phone: [facility] Encounters Encounter Date Encounter Type Care Provider Facility Start: 08-12-[address] Patrick Orozco MD -[facility] Start: 08-12-2025 End: 08-12-[address] Stone Orozco MD -[facility] Work Phone: Start: 08-12-2025 End: 08-12-[address] Ciara Ellis DO Work Phone: -[facility] Start: 08-05-2025 End: 08-05-[address] Ciara Ellis DO Work Phone: [facility] Start: 08-05-2025 End: 08-05-[address] Stone Orozco MD [facility] Work Phone: Start: 08-05-2025 End: 08-05-2025 ambulatory Stone Oroczo Facility:[facility] Start: 02-11-2025 End: 02-11-[address] Ciara Ellis DO Work Phone: [facility] Work Phone: Start: 02-11-2025 End: 02-11-[address] Darek Campos MD -[facility] Work Phone: Start: 02-11-2025 End: 02-11-2025 ambulatory Darek Campos Facility:[facility] Start: 12-28-2024 End: 12-28-[address] Stone Orozco MD -[facility]patient Breast Imaging Work Phone: Start: 12-28-2024 End: 12-28-2024 ambulatory Stone Orozco Facility:[facility] Start: 12-10-2024 End: 12-10-[address] Jacoby Khan MD -[facility] Work Phone: Start: 12-10-2024 End: 12-10-2024 ambulatory Jacoby Khan Facility:[facility] Start: 11-23-2024 End: 11-23-[address] Ciara Ellis DO -Laboratory Work Phone: Start: 11-23-2024 End: 11-23-2024 [facility] Start: 10-19-2024 End: 10-19-[address] Ciara Ellis DO -Outpatient Bone Densitometry Work Phone: Start: 10-19-2024 End: 10-19-20[facility] Start: 09-24-2024 End: 09-24-2024 [facility] Start: 09-17-2024 End: 09-17-2024 [facility] Start: 08-21-2024 [facility]ulatory [facility] Start: 02-28-2024 End: 02-28-[address] Ciara Ellis Work Phone: [facility] Work Phone: Start: 02-14-2024 Non-patient / Non-visit Dr. Ciara Ellis Work Phone: [facility] Start: 02-14-2024 End: 02-14-2024 Admission to same day surgery center Dr. Ciara Ellis Work Phone: [facility] Start: 02-14-2024 End: 02-14-[address] Ciara Ellis Work Phone: [facility] Work Phone: Start: 02-13-[address] Ciara Ellis Work Phone: [facility] Start: 02-13-2024 End: 02-13-[address] Ciara Ellis Work Phone: [facility] Work Phone: Start: 02-06-2024 End: 02-06-[address] Ciara Ellis Work Phone: [facility] Work Phone: Start: 02-06-2024 End: 02-06-[address] Caira Ellis Work Phone: [facility] Work Phone: Start: 02-01-2024 End: 02-01-[address] Ciara Ellis Work Phone: [facility] Work Phone: Start: 01-25-2024 Non-patient / Non-visit Dr. Ciara Ellis Work Phone: [facility] Start: 01-25-2024 End: 01-25-2024 Admission to same day surgery center Dr. Ciara Ellis Work Phone: [facility] Start: 01-25-2024 End: 01-25-[address] Ciara Ellis Work Phone: [facility] Work Phone: Start: 01-10-2024 End: 01-10-[address] Ciara Ellis Work Phone: [facility] Work Phone: Start: 01-02-2024 End: 01-02-[address] Ciara Ellis Work Phone: [facility] Work Phone: Start: 01-02-2024 End: 01-02-[address] Ciara Ellis Work Phone: [facility]-Laboratory, Specimen Work Phone: Start: 01-02-2024 End: 01-02-[address] Ciara Ellis Work Phone: [facility] Work Phone: Start: 12-27-2023 End: 12-27-[address] Ciara Ellis Work Phone: [facility] Work Phone: Start: 12-27-2023 End: 12-27-[address] Ciara Ellis Work Phone: [facility]-Outpatient Breast Imaging Work Phone: Start: 12-26-2023 End: 12-26-[address] Ciara Ellis Work Phone: [facility] Work Phone: Start: 12-26-2023 End: 12-26-[address] Ciara Ellis Work Phone: [facility]-Physical Therapy Work Phone: Start: 12-26-[address] Ciara Ellis Work Phone: [facility]-Physical Therapy Work Phone: Start: 12-19-2023 End: 12-19-[address] Ciara Ellis Work Phone: [facility] Work Phone: Start: 09-05-2023 End: 09-05-[address] Ciara Ellis Work Phone: [facility] Work Phone: Start: 09-05-2023 End: 09-05-[address] Ciara Ellis Work Phone: [facility]-Laboratory Work Phone: Start: 06-10-2023 End: 06-10-[address] Ciara Ellis Work Phone: [facility] Work Phone: Start: 05-28-2023 End: 05-28-[address] [facility] Work Phone: Start: 05-28-2023 End: 05-28-2023 Patient encounter procedure [facility]Laboratory Work Phone: Start: 04-07-2023 End: 04-07-[address] [facility] Work Phone: Start: 04-07-2023 End: 04-07-2023 Patient encounter procedure [facility]-Outpatient Breast Imaging Work Phone: Start: 02-11-2023 End: 02-11-[address] [facility] Work Phone: Start: 02-11-2023 End: 02-11-2023 Patient encounter procedure [facility]-Outpatient Breast Imaging Start: 02-08-2023 Registered Referred [facility] Start: 11-17-2022 Registered Referred [facility] Start: 11-17-2022 Registered Recurring [facility] Procedures Date Procedure Procedure Detail Performing Clinician Start: 08-12-[address] Ciara Ellis DO Work Phone: Start: 08-05-2025 MRI of bilateral kamran asts with contrast Dr. Ciara Ellis DO Work Phone: Start: 12-28-2024 Screening mammography Cary Ellis DO Work Phone: Start: 10-19-2024 Dual energy X-ray absorptiometry Dr. Ciara Ellis DO Work Phone: Start: 08-14-2024 Measurement of renal function Dr. Ciara Ellis DO Work Phone: Comment on above: GFR Calc Start: 02-14-2024 Breast, Biopsy, Need le Localization (Right) Dr. Ciara Ellis Work Phone: Start: 02-06-[address] Ciara Ellis Work Phone: Start: 01-25-2024 Breast, Biopsy, Need le Localization (Left) Dr. Ciara Ellis Work Phone: Start: 01-25-2024 Excisional biopsy of breast with preoperative localization Dr. Ciara Ellis Work Phone: Start: 12-27-[address] Ciara Ellis Work Phone: Start: 12-27-2023 Bilateral mammography D andrzej Ellis Work Phone: Start: 04-07-2023 Screening mammography Plan of Treatment Date Care Activity Detail Author Start: 12-30-2025 MG Breast - bilatera l Screening [facility] Start: 08-12-2025 Registered Recurring Registered Recu rring -[facility] Start: 08-12-2025 End: 08-12-2025 Patient encounter procedure Atypical ductal hyperplasia, breast -[facility] Work Phone: Start: 02-14-2024 Anes integ extremiti es ant trunk & perineum nos ANESTH SKIN EXT/PER/ATRUNK [facility] Start: 02-14-2024 Exc cyst/aberrant br east tissue open 1/> lesion REMOVAL OF BREAST LESION [facility] Start: 02-14-2024 Patient discharge [facility] Start: 01-25-2024 Anes integ extremiti es ant trunk & perineum nos ANESTH SKIN EXT/PER/ATRUNK [facility] Start: 01-25-2024 Exc cyst/aberrant br east tissue open 1/> lesion REMOVAL OF BREAST LESION [facility] Start: 01-25-2024 Patient discharge [facility] Start: 12-19-2023 Patient referral [facility] Work Phone: Calcium [Mass/volume ] in Serum or Plasma [facility] CBC W Auto Different ial panel - Blood [facility] MR Breast - bilatera l WO and W contrast IV [facility] Parathyroid hormone measurement [facility] Patient referral [facility] Work Phone: T4 free measurement [facility] Thyroid stimulating hormone measurement [facility] Urine test [facility] Vitamin D, 25-hydrox y measurement General acute hospital Immunizations Immunization Date Immunization Notes Care Provider Fa cility 08-10-2024 Covid (Spikevax) Dr. Ciara stephenson DO Work Phone: [facility] 08-10-2024 influenza, seasonal, injectable, preservative free Dr. Ciara Ellis DO Work Phone: [facility] 09-09-2023 Covid (Spikevax) Dr. Ciara Carrero sachin Work Phone: [facility] 09-01-2023 influenza, injectabl e, quadrivalent, preservative free Dr. Ciara Ellis Work Phone: [facility] 10-05-2022 influenza, injectabl e, quadrivalent, preservative free Dr. Ciara Ellis Work Phone: [facility] 10-05-2022 influenza, seasonal, injectable [facility] 09-27-2022 Covid Pfizer Bivalen t Booster [facility] 11-09-2021 Covid (Pfizer) [facility] 03-14-2021 Covid (Pfizer) [facility] 02-21-2021 Covid (Pfizer) [facility] Payers Date Payer Category Payer Self-pay [id number] 2024 Unknown [id number] 2014 Unknown [facility] [id number] Private Health Insurance [employer] [id number] Unknown [facility] [place] [id number] Unknown [facility] [id number] Unknown [facility] *DO NOT USE* [id number] Unknown [id number] 62 Unknown [id number] 62 Unknown [id number] 62 Unknown [id number] 62 Unknown [id number] 62 Unknown [id number] 62 Unknown [id number] 62 Unknown [id number] 62 Unknown [id number] 62 Unknown [id number] 62 Unknown [id number] 62 Social History Date Type Detail Facility Start: 12-22-2021 End: 02-13-2024 Tobacco smoking status NHIS Unknown if ever smoked [facility] Start: 1965 Sex Assigned At Female [facility] Start: 02-13-2024 Tobacco smoking status NHIS Ex-smoker (finding) [facility] Start: 02-14-2025 Sex Female (finding) [facility] Sex Female [facility] NEGATED: Highlighted row [facility] Medical Equipment Procedure Code Equipment Code Equipment Origin al Text Equipment Identifier Dates Ligation clip, metallic ()[id number] FDA Start: 02-14-2024 Goals Date Patient Goal Desired Activity /State Mental Status Date Assessment Result Facility 02-14-2024 Cognitive function Voice/Name [facility] Work Phone: 01-25-2024 Cognitive function Voice/Name [facility] Work Phone: Clinical Notes 02-11-2023 to 08-12-2025 Note Date & Type Note Facility 08-12-2025 Progress note [facility] 02-11-2025 Radiology Diagnostic study note [facility] Imaging Services [address] [place], [place] [address] Breast Complete Unilateral MR#: [id number] Acct: [id number] Name: DEBBIE BELCHER Rep #: [id number] : 1965 F 59 From: Mal Lutz DO PCP: Dr. Ciara Ellis DO Status: REG CLI Study:Breast Complete Unilateral Date of Exam : 02/11/25 Exam# [id number] Ordering Dr: Darek Hess MD PROCEDURE: BREAST COMPLETE UNILATERAL 02/11/2025 REASON FOR EXAM: F, Age 59 y/o , LEFT BREAST PAIN AND ITCHING COMPARISON: Prior mammogram study dated 12/28/2024. TECHNIQUE: Bilateral diagnostic digital breast tomosynthesis with 2D and 3D images. Computer aided detection. A complete left breast ultrasound was performed. All 4 quadrants were scanned as well as the retroareolar region. FINDINGS: ULTRASOUND: A complete left breast ultrasound was performed. There are some minimally ectatic ducts identified in the breast on the images submitted for review. There are benign-appearing cysts identified at the 1 o'clock, 3 cm from the nipple position measuring 3 x 2x 2 mm, 1 o'clock, 4 cm from the nipple position measuring 4 x 3 x 3 mm, 1 o'clock, 3 cm from the nipple position measuring 4 x 3x 2 mm, and retroareolar region measuring 8 x 6 x 3 mm. The cyst in the retroareolar region does have internal echoes. The cyst at the 1 o'clock, 3 cm from nipple position measuring 4 x 3 x 2 mm has a thin septation. The cyst may be the cause of her breast pain. No suspicious solid masses are seen to suggest malignancy. The skin is not abnormally thickened. There is no ultrasound abnormality seen to correlate to the itching sensation that the patient is describing. US/Breast Complete Unilateral IMPRESSION: BI-RADS 2: BENIGN RECOMMEND ANNUAL MAMMOGRAPHIC SCREENING. Reading Location: [id number] CC: Dr. Darek Campos MD; Dr. Ciara Elils DO ~ Mortgage Processing Clerk: Signed [facility] 12-10-2024 Evaluation note Diagnosis Onset Date Resolution Hypothyroidism chronic December 102024 3:14pm Primary hyperparathyroidism chronic December 10, 2024 3:14pm [facility] Work Phone: 1(407) 273-242204-15-2024 Discharge summary Author Abdullahi Lerner [facility] February 27, 2024 11:30am Note Date/Time February 27, 2024 11: 28am [facility] Physical Therapy [facility] [address] [place] [address]. [address] [place] [address] / REHABILITATION SERVICES DISCHARGE SUMMARY MR#: [id number] Acct: [id number] Name: DEBBIE BELCHER Rep #: [id number] : 1965 58 From: Cert. AGUSTIN Davies, OCS Referring Dr.: Dr. Tito Reyna DO Status: REG RCR Insurance: [facility] [employer] SEL[employer] PAY INSURANCE Patient Information Patient Information: DEBBIE BELCHER was seen in my office for initial evaluation on 12/26/23. The following Plan of Care was established for this patient: POC Established Initial Frequency: 2x /Week Initial Duration: 4 Weeks Anticipated Interventions Patient/Client Instruction: Educate patient on: Condition and Plan of Care For the Purpose of:: To decrease pain, To increase ROM, To improve muscle performance and motor function, To improve ability to perform ADL's, To increasetolerance to activity/condition/position, To improve performance and independence with ADL's, To improve ability of physical actions for home/community/work/leisure, To improve health of tissue, To decrease soft tissue restriction, To increase flexibility/ROM, To reduce risk of recurrence and To prevent re-injury Therapeutic Exercise to Include: Strength training, Postural training, Flexibilty training, Active ROM and Scapular Strength/Stabilization For the Purpose of:: To decrease pain, To increase ROM, To improve muscle performance and motor function, To improve ability to perform ADL's, To increasetolerance to activity/condition/position, To improve ability of physical actionsfor home/community/work/leisure, To improve health of tissue, To decrease soft tissue restriction, To increase flexibility/ROM, To prevent re-injury and To improve tolerance to ADL's TENS: Yes IF ES: Yes Cryotherapy (ice pack, ice massage): Yes Thermo therapy (hot pack): Yes Ultrasound (thermal/non thermal): Yes For the Purpose of:: To decrease pain, To increase ROM, To improve nutrient delivery to tissue, To increase oxygenation perfusion, To improve health of tissue and To decrease soft tissue restriction Last Seen Last Seen: This patient was last seen in our office . Pertinent comments regarding their Physical therapy will appear below: Patient seen for PT for right shoulder pain evaluation and HEP At this point I will be discontinuing this patient from physical therapy. I would be happy to see this patient again in the future if found appropriate by the physician. Thank you! Abdullahi Lerner, PT, Cert MDT, OCS Balance/Gait/Functional tests Balance/Special Test Scores Quick DASH Score: 38.6350 <Electronically signed by Abdullahi Lerner PT Cert. T, OCS> 02/27/24 1130 CC: Dr. Tito Reyna DO; Dr. Ciara Ellis, DO ~ CHAVA Signed [facility] Work Phone: 1(798) 451-218304-02-[address] [facility] 01-25-[address] [facility]03-13-2024 History and physical note Author Darek Campos [facility] January 25, 2024 6:36am Note Date/Time January 25, 2024 6:[address] [facility] Medical Records Department [address] [place] [address] History & Physical Exam 01/25/24 0635 MR#: [id number] Acct: [id number] Name: DEBBIE BELCHER Rep #:[id number] : 1965 58 From: Darek velasquez MD PCP: Dr. Ciara Ellis, DO Status:REG [facility] Location: [place] [address] History and Physical Date of Admission: 01/25/24 Intake Vital Signs 06/10/2315:24 Height 5 ft 5 in Intake Visit Reasons: REVIEW BREAST RESULTS Chief Complaint: review breast results Captain Assistant Required: No Is patient in pain?: No Allergies No Known Allergies Allergy (Verified 01/10/24 13:55) Medications sertraline 50 mg tablet 75 mg PO DAILY 09/14/19 [History Confirmed 01/10/24] cholecalciferol (vitamin D3) 50 mcg (2,000 unit) capsule 2,000 unit PO DAILY 11/15/19 [History Confirmed 01/10/24] levothyroxine 100 mcg tablet 100 mcg PO DAILY 12/22/21 [History Confirmed 01/10/24] norgestimate-ethinyl estradiol 0.18 mg/0.215mg/0.25mg-35 mcg(28)tablet (Tri Femynor) 1 tab PO DAILY 12/22/21 [History Confirmed 01/10/24] diltiazem HCl 120 mg capsule,extended release 24 hr 120 mg PO DAILY #90 caps 04/06/23 [Rx Confirmed 01/10/24] naproxen 500 mg tablet 500 mg PO 12/19/23 [History Confirmed 01/10/24] Subjective Details: Patient is here following up after breast biopsy. She has no complaints. Objective Details: The breast does have some ecchymosis medially. Coding Level of Care Code Off vis,est,level 2 Diagnoses Breast mass, left N63.20 [facility] Medical History (Updated 01/02/24 @ 13:[address] Darek Campos MD) Ectopic atrial tachycardia Hypothyroidism Palpitations Surgical History History of dilatation and curettage History of tonsillectomy Family History Father Colon cancerGrandmother Breast cancerMother Hypertension Social History Smoking Status: Former smoker alcohol intake: current details: occasional substance use type: does not use caffeine: Yes Type: carbonated beverages Number of servings: 1 and coffee Number of servings: 2 Assessment and Plan (No Qualifiers) Assessment and Plan (1) Breast mass, left: Status: Acute Plan: The patient had a left breast retroareolar mass. It was biopsied in the office last week and was found to be a papilloma. I recommended central ductal excision to remove the entire papilloma. I discussed the procedure in detail aswell as the risks including but not limited to bleeding, infection, need for further surgery. Patient understands the risks and is willing to proceed. Darek Campos MD Pager: [facility] [address] [place] [address], [address] [place] [address] Office: I have examined the patient and the H&P has been reviewed. There are no clinicalchanges since date of exam. 01/25/24 0636 <Electronically signed by Darek Campos MD> Cosigner Signature (if applicable): CC: Dr. Darek Campos MD; Dr. Ciara Ellis DO~ Signed [facility] Work Phone: [phone]) 207-726803-31-2023 NotePap Smear Specimen AdequacyMarch 2022 5:00pmComment.Satisfactory for evaluation. Endocervical and/or squamous metaplasticcells (endocervical component)are present.[facility] INTER[facility]ACED A#[id number] Hospitals St. John Medical CenterComment on above:Satisfactory for evaluation. Endocervical and/or squamous metaplasticcells (endocervical component)are present.02-11-2023 NotePap Smear Specimen AdequacyMarch 2022 5:00pmComment.Satisfactory for evaluation. Endocervical and/or squamous metaplasticcells (endocervical component)are present.[facility] INTER[facility]ED A#[id number] Hospitals St. John Medical CenterComment on above:Satisfactory for evaluation. Endocervical and/or squamous metaplasticcells (endocervical component)are present.02-11-2023 NotePap Smear Specimen AdequacyMarch 2022 5:00pmComment.Satisfactory for evaluation. Endocervical and/or squamous metaplasticcells (endocervical component)are present.[facility] INTER[facility]ACED A#[id number] HospitalComment on above:Satisfactory for evaluation. Endocervical and/or squamous metaplasticcells (endocervical component)are present.Discharge summary Author Darek Campos [facility] January 25, 2024 9:04am Note Date/Time January 25, 2024 9:0 2am [facility] Medical Records Department [address] [place] [address] Instructions for Home/Discharge Instructions 01/25/24 0859 MR#: [id number] Acct: [id number] Name: DEBBIE BELCHER Rep #:[id number] : 1965 58 From: Darek velasquez MD PCP: Dr. Ciara Ellis, DO Status:[facility] Discharge Instructions Procedure Breast Surgery Diet Discharge Diet: No restrictions Activity Discharge Activity: May Not Drive (for 2-3 days or while taking narcotic pain medications.) and May Shower (tomorrow) Additional Activity Instructions:: Apply bacitracin to nipple and cover with nonstick gauze until healed. Take Ibuprofen and Tylenol for pain, Oxycodone for breakthrough pain Dressing / Incision Call your doctor if your incision/area has: Continuous Slow Oozing and IncreasedRedness Call your doctor if you observe: Fever of 101 or Higher Suture Line Care: Avoid Pulling/Pushing and Avoid Pinching/Bending Change Dressing in: 1 day Cleanse incision/area with: Soap & Water Follow Up Care Please Follow Up With: Darek Campos MD When: Please call to schedule 1 week follow up appointment. [phone] Test Results: Test results from this visit will be discussed in further detail at your follow- up appointment, if applicable. Discharge Plan Admission Attending Provider: Darek Campos Primary Care Provider: Ciara Ellis Discharge Orders/Prescriptions Prescriptions: New oxycodone 5 mg tablet 5 - 10 mg PO Q6H PRN (Reason: pain) 5 Days Qty: 15 0RF No Action cholecalciferol (vitamin D3) 50 mcg (2,000 unit) capsule 6,000 unit PO DAILY sertraline 50 mg tablet 75 mg PO DAILY levothyroxine 100 mcg tablet 150 mcg PO DAILY norgestimate-ethinyl estradiol [Tri Femynor] 0.18/0.215/0.25 mg-35 mcg (28) tablet 1 tab PO DAILY cetirizine [24Hour Allergy] 10 mg tablet 10 mg PO DAILY diltiazem HCl 120 mg capsule,extended release 24hr 120 mg PO DAILY Qty: 90 3RF Referrals / Follow Up: Ciara Ellis DO [Primary Care Provider] - Disposition Disposition (needs filled in before D/C Order can be placed): Home, Self Care 01/25/24 0904<Electronically signed by Darek Campos MD>Darek Campos MD CC: Dr. Ciara Ellis DO ~ Signed [facility] Work Phone: Discharge summary Author Darek Campos [facility] February 14, 2024 8:23am Note Date/Time February 14, 2024 8:23 am [facility] Medical Records Department [address] [place] [address] Instructions for Home/Discharge Instructions 02/14/24 0822 MR#: [id number] Acct: [id number] Name: DEBBIE BELCHER Rep #:[id number] : 1965 58 From: Darek velasquez MD PCP: Dr. Ciara Ellis DO Status:[facility] Discharge Instructions Procedure Breast Surgery Diet Discharge Diet: No restrictions Activity Discharge Activity: May Drive and May Shower Lifting Restrictions: 15 lbs for 3-4 days Dressing / Incision Call your doctor if your incision/area has: Continuous Slow Oozing and IncreasedRedness Call your doctor if you observe: Fever of 101 or Higher Suture Line Care: Avoid Pulling/Pushing and Avoid Pinching/Bending Additional Dressing/Incision Instructions:: Take ibuprofen and Tylenol for pain Follow Up Care Please Follow Up With: Darek Campos MD When: Please call to schedule 2 week follow up appointment. [phone] Test Results: Test results from this visit will be discussed in further detail at your follow- up appointment, if applicable. Discharge Plan Admission Attending Provider: Darek Campos Primary Care Provider: Ciara Ellis Discharge Orders/Prescriptions Prescriptions: No Action cholecalciferol (vitamin D3) 50 mcg (2,000 unit) capsule 6,000 unit PO DAILY sertraline 50 mg tablet 75 mg PO DAILY norgestimate-ethinyl estradiol [Tri Femynor] 0.18/0.215/0.25 mg-35 mcg (28) tablet 1 tab PO DAILY levothyroxine 150 mcg tablet 150 mcg PO DAILY tamoxifen 20 mg tablet 20 mg PO DAILY Qty: 90 4RF Hold Instructions: Pt has not started taking yet Patient Comments: Not started yet just filled the script. cetirizine [24Hour Allergy] 10 mg tablet 10 mg PO DAILY diltiazem HCl 120 mg capsule,extended release 24hr 120 mg PO DAILY Qty: 90 3RF Other Ambulatory Orders: ,Urine (Routine) Timeframe: 20240214 Facility: [facility] - Location: Laboratory Ordered By: Dr. Gabriel Pathak Referrals / Follow Up: Ciara Ellis DO [Primary Care Provider] - Disposition Disposition (needs filled in before D/C Order can be placed): Home, Self Care 02/14/24822<Electronically signed by Darek Campos MD>Darek Campos MD CC: Dr. Ciara Ellis DO ~ Signed [facility] Work Phone: evaluation noteNo assessment information available [facility] Work Phone: evaluation note* Diagnosis Onset Date Resolution Status Ectopic atrial tachycardia a cute Palpitations acute [facility] Work Phone: Evaluation note* Diagnosis Onset Date Resolution Status Right rotator cuff tendinitis noneactive [facility] Work Phone: Evaluation note* Diagnosis Onset Date Resolution Status Right rotator cuff tendinitis noneactive Breast mass, left acute Discharge from left nipple a cute [facility] Work Phone: Evaluation note* Diagnosis Onset Date Resolution Status Right rotator cuff tendinitis noneactive Breast mass, left acute Discharge from left nipple a cute Breast mass, left acute [facility] Work Phone: Evaluation note* Diagnosis Onset Date Resolution Status Right rotator cuff tendinitis noneactive Breast mass, left acute Discharge from left nipple a cute Breast mass, left acute Intraductal papilloma acute [facility] Work Phone: Evaluation note* Diagnosis Onset Date Resolution Status Right rotator cuff tendinitis noneactive Breast mass, left resolved Discharge from left nipple r esolved Breast mass, left resolved Intraductal papilloma acute Atypical ductal hyperplasia, breast acute Intraductal papilloma acute Atypical ductal hyperplasia, breast acute Intraductal papilloma acute [facility] Work Phone: Evaluation note* Diagnosis Onset Date Resolution Status Right rotator cuff tendinitis noneactive Breast mass, left resolved Discharge from left nipple r esolved Breast mass, left resolved Intraductal papilloma acute Atypical ductal hyperplasia, breast acute Intraductal papilloma acute Atypical ductal hyperplasia, breast acute Intraductal papilloma acute Atypical ductal hyperplasia, breast acute [facility] Work Phone: Evaluation note* Diagnosis Onset Date Resolution Status Admit Date Atypical ductal hyperplasia, breast chronic August 12, 2025 1:41pm Intraductal papilloma resolved Sep tem2024 1:41pm [facility] Work Phone: History and physical note Author Darek Campos [facility] February 14, 2024 6:43am Note Date/Time February 14, 2024 6:43 am [facility] Medical Records Department [address] [place] [address] H&P Exam - Surgical 02/14/24 0641 MR#: [id number] Acct: [id number] Name: DEBBIE BELCHER Rep #:[id number] : 1965 58 From: Darek velasquez MD PCP: Dr. Ciara Ellis, DO Status:[facility] Location: [place] [address] HPI - General HPI Narrative DEBBIE BELCHER, is a 58 F who presents for intraductal papilloma. The patient hadan abnormal ultrasound the left breast and had excision of this area which was found to have a papilloma with focal atypia. Because of the focal atypia of theopposite breast had an ultrasound exam and a papilloma and dilated ducts were identified on that side as well. [facility] Medical History Abnormal mammogram Anxiety Atypical ductal hyperplasia, breast Cardiology follow-up encounter Ectopic atrial tachycardia Heartburn History of echocardiogram History of Holter monitoring History of irregular heartbeat History of stress test Hypothyroidism Palpitations Thyroid disease Wears glasses Wears partial dentures Home Medications sertraline 50 mg tablet 75 mg PO DAILY 09/14/19 [History Last Taken 02/13/24 07:00] cholecalciferol (vitamin D3) 50 mcg (2,000 unit) capsule 6,000 unit PO DAILY 11/15/19 [History Last Taken 02/13/24 07:00] norgestimate-ethinyl estradiol 0.18 mg/0.215mg/0.25mg-35 mcg(28)tablet (Tri Femynor) 1 tab PO DAILY 12/22/21 [History Last Taken 02/13/24 07:00] diltiazem HCl 120 mg capsule,extended release 24 hr 120 mg PO DAILY #90 caps 04/06/23 [Rx Last Taken 02/14/24 05:25] cetirizine 10 mg tablet (24Hour Allergy) 10 mg PO DAILY 01/18/24 [History Last Taken 02/13/24 07:00] levothyroxine 150 mcg tablet 150 mcg PO DAILY 02/13/24 [History Last Taken 02/14/24 05:25] tamoxifen 20 mg tablet 20 mg PO DAILY #90 tabs 02/13/24 [Rx Last Taken Unknown] Allergy/AdvReac Type Severity Reaction Status Date / Time No Known Allergies Allergy Verified 02/14/24 06:34 Family History Father Colon cancer Grandmother Breast cancer Mother Hypertension Surgical History History of breast surgery History of dilatation and curettage History of tonsillectomy Social History (Updated 02/13/24 @ 15:56 by Flavia Cutler) Smoking Status: Former smoker Tobacco: How many years used: 2 how long ago did patient quit smokin years ago alcohol intake: current alcohol intake frequency: holidays/special occasions only details: occasional substance use type: does not use caffeine: Yes Type: carbonated beverages Number of servings: 1 and coffee Number of servings: 2 ROS Constitutional Constitutional: Denies anorexia, chills or fatigue Eyes Eyes: Denies blurry vision ENT HEENT: Denies abnormal hearing Cardiovascular Cardiovascular: Denies chest pain Respiratory/Chest Respiratory/Chest: Denies cough or dyspnea Gastrointestinal Gastrointestinal: Denies abdominal pain or vomiting Genitourinary Genitourinary: Denies change in urinary stream Musculoskeletal Musculoskeletal: Denies abnormal gait Integumentary Integumentary: Denies new lesions Neurologic Neurologic: Denies abnormal gait Psychiatric Psychiatric: Denies anxiety Physical Exam Const oriented x3 and no apparent distress Resp normal respiratory effort GI soft to palpation and non-tender Extremity normal to inspection Results Lab / Micro Data Labs: Laboratory Results - last 24 hr 02/14/24 06:11: Urine Test Negative Assessment & Plan Assessment/Plan (1) Atypical ductal hyperplasia, breast: (2) Intraductal papilloma: PLAN: Plan The patient has central ductal excision on the left a few weeks ago and the pathology showed intraductal papillomatosis with focal atypia. The opposite breast had an ultrasound performed and there was found that she had dilated ducts and intraductal papilloma on the side as well. I discussed with oncology and we decided to perform excisional biopsy to make sure this is the same as theopposite side. After this the patient will be enrolled in the high risk screening protocol. I discussed contralateral central ductal excision with the patient in detail. I discussed the risks including modalities to bleeding, infection, hematoma or seroma formation. Patient understands the risks and is willing to proceed. She is also aware that if there is any cancer identified she will need further axillary biopsy. Darek Campos MD Pager: [facility] [address] [place] [address], [address] [place] [address] Office: 02/14/24 7843 <Electronically signed by Darek Campos MD> Cosigner Signature (if applicable): CC: Dr. Darek Campos MD; Dr. Ciara Ellis DO~ Signed [facility] Work Phone: Progress note Author Stone Orozco [facility] Note Date/Time August 12, 2025 3:05pm [facility] [address] [place] [address] OFFICE VISIT Date of Service: 08/12/25 1423 MR#: [id number] Acct: [id number] Name: DEBBIE BELCHER Rep #: [id number] : 1965 From: Stone garza MD Age/Sex: 60/F Location: [facility] Status: Signed HPI Subjective Date of Service 08/12/25 Chief Complaint Breast disease, increased risk for breast cancer History of Present Illness 58-year-old female perimenopausal, was on on estrogen, who presented with bloodstained discharge from the left nipple in December 2023. Later in January 2024 she noted some discharge from the right nipple but not bloody. She has no family history of breast cancer, her father had prostate and colon cancers. December 27, 2023 diagnostic mammogram: IMPRESSION: Stable bilateral diagnostic mammogram. With the patient''s history of a left bloody nipple discharge, correlation with ultrasound is recommended. December 27, 2023 left breast diagnostic ultrasound: IMPRESSION: 1 cm x 0.9 cm x 0.6 cm irregular nodule in the retroareolar region of the left breast. Biopsy recommended. ASSESSMENT CATEGORY: BIRADS Category 4: Suspicious - January 03, 2024 Left breast tissue, core biopsy: A few minute fragments of benign breast tissue with rare fragments suggestive ofintraductal papilloma. Blood clots. Negative for atypia or malignancy January 25, 2024 Left central ductal lesion, excision; Florid intraductal hyperplasia with focal atypia. Fibrocystic change. Intraductal papillomatosis. Focal involutional change. Fibrosis, fat necrosis and reactive change consistent with previous biopsy. Banal microcalcifications February 06, 2024 right breast ultrasound: RIGHT Breast: The retroareolar region of the right breast was examined with ultrasound. There is a 1 mm x 1 mm x 1 mm echogenic structure within a dilated retroareolar duct. A similar appearing 4 mm x 4 mm x 3 mm nodule is also seen within a dilated duct suggestive of papillomas. IMPRESSION: Findings suggestive papillomas in the retroareolar ducts of the right breast as described. February 14, 2024 Right breast central duct, excision: Multifocal intraductal hyperplasia with focal atypia. Fibrocystic changes. Focal intraductal papillomatosis. Focal microcalcifications. Negative for malignancy. Treatment summary: Tamoxifen prophylaxis started February 2024 [facility] Medical History Primary hyperparathyroidism Hypercalcemia Carpal tunnel syndrome UTI (urinary tract infection) Atypical ductal hyperplasia, breast Abnormal mammogram Wears glasses Wears partial dentures Anxiety Thyroid disease Heartburn History of Holter monitoring History of echocardiogram History of stress test Cardiology follow-up encounter History of irregular heartbeat Ectopic atrial tachycardia Palpitations Hypothyroidism Surgical History History of breast surgery History of dilatation and curettage History of tonsillectomy Family History Father Colon cancer Skin cancer Thyroid disorder Prostate cancer Grandmother Breast cancer Mother Hypertension Lupus Osteoporosis Social History Smoking Status: Former smoker Tobacco: How many years used: 2 how long ago did patient quit smokin years ago alcohol intake: current alcohol intake frequency: holidays/special occasions only details: occasional substance use type: does not use caffeine: Yes Type: carbonated beverages Number of servings: 1 and coffee Number of servings: 2 ROS Constitutional Constitutional: Reports systems reviewed and no addt'l complaints, except as documented Eyes Eyes: Reports systems reviewed and no addt'l complaints, except as documented ENT HEENT: Reports systems reviewed and no addt'l complaints, except as documented Cardiovascular Cardiovascular: Reports systems reviewed and no addt'l complaints, except as documented; Denies chest pain Respiratory/Chest Respiratory/Chest: Denies cough or dyspnea Gastrointestinal Gastrointestinal: Reports systems reviewed and no addt'l complaints, except as documented Genitourinary Genitourinary: Reports other Details: Menses ceased in 2023 Musculoskeletal Musculoskeletal: Reports systems reviewed and no addt'l complaints, except as documented Integumentary Integumentary: Reports systems reviewed and no addt'l complaints, except as documented Neurologic Neurologic: Reports systems reviewed and no addt'l complaints, except as documented Psychiatric Psychiatric: Reports systems reviewed and no addt'l complaints, except as documented Endocrine Endocrinology: Reports systems reviewed and no addt'l complaints, except as documented; Denies flushing Hematologic/Lymphatic Hematologic/Lymphatic: Reports systems reviewed and no addt'l complaints, exceptas documented Allergic/Immunologic Allergic/Immunologic: Reports systems reviewed and no addt'l complaints, except as documented Intake Vital Signs 12/10/24 15:19 08/12/25 14:25 08/12/25 14:27 Height 5 ft 5 in 5 ft 5 in 5 ft 5 in Weight: 72.121 kg BMI 26.4 BP 99/64 Blood Pressure Location Lt brachial Position Sitting Respiration 16 Pulse 98 Pulse Source Monitor Temp 97.8 F Temperature Source Temporal Artery Pulse Oximetry (%) 94 Oxygen Delivery Method room air Intake Is patient in pain?: No Allergies No Known Allergies Allergy (Verified 08/12/25 14:26) Medications ?Medication ?Instructions ?Recorded ?Confirmed ?Type sertraline 50 mg tablet 75 mg PO DAILY 09/14/1910/15 History cetirizine 10 mg tablet (24Hour 10 mg PO DAILY 4 12/10/24 History Allergy) diltiazem HCl 120 mg 120 mg PO DAILY #90 caps 11/05/24 Rx capsule,extended release 24 hr levothyroxine 150 mcg tablet 137 mcg PO DAILY 11/05/24 11/05/24 History cholecalciferol (vitamin D3) 50 2,000 unit PO DAILY 08/12/25 History mcg (2,000 unit) capsule tamoxifen 20 mg tablet 20 mg PO QDAY #90 tabs 08/1208/12/25 Rx Have you fallen in the past year?: No Central Venous Access Central Venous Access: No CBC August 12, 2025 reviewed in EMR. CMP pending will be reviewed once final. 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 Intraductal papilloma D36.9 Assessment and Plan Assessment and Plan (1) Atypical ductal hyperplasia, breast: Status: Chronic (2) Intraductal papilloma: Status: Resolved Orders: Orders SCRN MAMM (CAD)W/DORA BILAT 12/30/25 N60.99 - Unspecified benign mammary dysplasia of unspecified breast, Z12.31 - Encounter for screening mammogram for malignant neoplasm of breast Medications: New tamoxifen 20 mg PO QDAY 90 tabs 4RF N60.99 - Unspecified benign mammary dysplasia of unspecified breast Plan 60-year-old female, perimenopausal at time of diagnosis with florid intraductal hyperplasia with focal atypia on the biopsy from the left breast. This benign breast disease is a marker for relatively increased future risk for developing breast cancer. She stopped estrogen replacement therapy for menopausal symptoms when the diagnosis of breast disease was made. She started tamoxifen prophylaxis February 2024, tolerated with no reportable side effects. Treatment was transiently interrupted in 2024 by error to be resumed July 2025. Her last menstrual period was in 2023. Recommendation: 1. Continue tamoxifen prophylaxis for a total of 5 years 2. Continue imaging of the breasts at 6 months intervals alternating mammograms with MRI. Patient was seen with her , impression and recommendation discussed. Follow-up in 12 months Stone Orozco MD Blanket Winder Operator, [facility] Divisions of Medical Oncology & Hematology Department of Internal Medicine [place] [address] This note was generated using a voice recognition system software. Although itwas reviewed by the author prior to finalization, it may still contain incorrectwords, spelling, and punctuation that were not noted when reviewing prior to saving. If a clinically significant typo or inaccurately typed phrase is noted, please notify the author. Clinical Quality Measures Falls Risk Screening/Assistive Devices Have you fallen in the past year?: No 08/12/25 1505 <Electronically signed by Stone thompson MD> Date _ Stone Orozco MD Cosigner Signature: Date (if applicable) CC: ~ [facility] Work Phone: Reason for referral (narrative)No reason for referral information availableWMansfield Hospital Work Phone: Chief Complaint and Reason for Visit Chief Complaint NEW EMPLOYEE PHYSICA L EMPLOYEE HEALTH SCREENING Chief Complaint EMPLOYEE HEALTH SCREENING SCREENING Chief Complaint 1 Y FU Reason for Visit Ectopic atrial tachy cardia Palpitations Chief Complaint RIGHT ARM RIGHT ROTATOR CUFF TENDINITIS. RX HERE LT BREAST BLOODY NIPPLE D/C, HX INVERTED NIPPLE Reason for Visit Right rotator cuff t endinitis Chief Complaint RIGHT ARM RIGHT ROTATOR CUFF TENDINITIS. RX HERE LT BREAST BLOODY NIPPLE D/C, HX INVERTED NIPPLE BIRADS 4 LEFT BREAST MASS Reason for Visit Right rotator cuff t endinitis Breast mass, left Discharge from left nipple Chief Complaint RIGHT ARM RIGHT ROTATOR CUFF TENDINITIS. RX HERE LT BREAST BLOODY NIPPLE D/C, HX INVERTED NIPPLE BIRADS 4 LEFT BREAST MASS REVIEW BREAST RESULTS Excision, Left Breast central Ductal Excision, Left Breast central Ductal Reason for Visit Right rotator cuff t endinitis Breast mass, left Discharge from left nipple Breast mass, left Chief Complaint RIGHT ARM RIGHT ROTATOR CUFF TENDINITIS. RX HERE LT BREAST BLOODY NIPPLE D/C, HX INVERTED NIPPLE BIRADS 4 LEFT BREAST MASS REVIEW BREAST RESULTS Excision, Left Breast central Ductal Excision, Left Breast central Ductal Excision Left Breast, DOS 3/13 ABNORMAL MAMMOGRAM Reason for Visit Right rotator cuff t endinitis Breast mass, left Discharge from left nipple Breast mass, left Intraductal papilloma Chief Complaint RIGHT ARM RIGHT ROTATOR CUFF TENDINITIS. RX HERE LT BREAST BLOODY NIPPLE D/C, HX INVERTED NIPPLE BIRADS 4 LEFT BREAST MASS REVIEW BREAST RESULTS Excision, Left Breast central Ductal Excision, Left Breast central Ductal Excision Left Breast, DOS 3/13 ABNORMAL MAMMOGRAM NEW PT - BREAST? 6 MO - LABS - REVIEW MRI Excision, Right Breast Central Ductal Excision, Right Breast Central Ductal Reason for Visit Right rotator cuff t endinitis Breast mass, left Discharge from left nipple Breast mass, left Intraductal papilloma Atypical ductal hyperplasia, breast Intraductal papilloma Atypical ductal hyperplasia, breast Intraductal papilloma Chief Complaint RIGHT ARM RIGHT ROTATOR CUFF TENDINITIS. RX HERE LT BREAST BLOODY NIPPLE D/C, HX INVERTED NIPPLE BIRADS 4 LEFT BREAST MASS REVIEW BREAST RESULTS Excision, Left Breast central Ductal Excision, Left Breast central Ductal Excision Left Breast, DOS 3/13 ABNORMAL MAMMOGRAM NEW PT - BREAST? 6 MO - LABS - REVIEW MRI Excision, Right Breast Central Ductal Excision, Right Breast Central Ductal EXCISION RIGHT BREAST DOS 4/2 Reason for Visit Right rotator cuff t endinitis Breast mass, left Discharge from left nipple Breast mass, left Intraductal papilloma Atypical ductal hyperplasia, breast Intraductal papilloma Atypical ductal hyperplasia, breast Intraductal papilloma Atypical ductal hyperplasia, breast Chief Complaint Admit Date Hyperparathyroidism, unspecified Decembe r 2023 12:21pm Parathyroid December 10, 2024 3 :14pm SCREENING December 28, 2024 3:04pm LT BREAST PAIN AND ITCHING February 11, 2 025 8:42am Reason for Visit Admit Date Hypothyroidism December 10, 2024 3 :14pm Primary hyperparathyroidism November 3:14pm Chief Complaint Admit Date Unspecified benign mammary dysplasia of unspecifie August 05, 2025 10:33am 1YR LABS REVIEW MRI August 12, 2025 1:41pm 6 MO - LABS - REVIEW MRI August 12, 2025 1:45pm Reason for Visit Admit Date Atypical ductal hyperplasia, breast Sept ember 2024 1:41pm Intraductal papilloma August 12 1:41pm Family History No Family History Records Found Relationship Condition Age at Onset Recorded Date/T kenia father Malignant neoplasm of colon Unknown Malignant neoplasm of skin Unknown Disorder of thyroid Unknown Malignant neoplasm of prostate Unknown grandmother Malignant neoplasm of breast Unknown mother Hypertension Unknown Lupus Unknown Osteoporosis Unknown Relationship Condition Age at Onset Recorded Date/T kenia father Malignant neoplasm of colon Unknown grandmother Malignant neoplasm of breast Unknown mother Hypertension Unknown Advance Directives No Advanced Directives Records Found Advance Directive Response Recorded Date/ Time Living Will No January 18, 2024 10:20am Power of Movie Theater Manager No January 17 10:20am Advance Directive Response Recorded Date/ Time Living Will No February 10, 2024 2:58pm Power of Movie Theater Manager No February 09 2:58pm Advance Directive Response Recorded Date/ Time Living Will No February 10, 2024 2:58pm Do you have a Healthcare Power of Movie Theater Manager? No February 10, 2024 2:58pm Summary Purpose Additional Source Comments Care Teams (unrecognized sec tion and content) Team Status: Active Member Role Status Dates Dr. Ciara Ellis , DO Family Provider Active Dr. Ciara Ellis , DO Primary Care Provider Active Team Status: Active Member Role Status Dates Employee Health Attending Provider Active Team Status: Active Member Role Status Dates Dr. Ciara Ellis DO Primary Care Provider Active Health Risk Assessment Attending Provider, Referring P rovider Active Team Status: Inactive Member Role Status Dates Dr. Ciara Ellis DO Primary Care Provider, Attending P rovider Active Team Status: Inactive Member Role Status Dates Dr. Ciara Ellis DO Primary Care Provide r, Attending Provider, Referring Provider Active Team Status: Inactive Member Role Status Dates Dr. Ciara Ellis DO Primary Care Provider, Referring P rovider Active Kecia Henriquez PA, PA Attending Provider Active Team Status: Inactive Member Role Status Dates Dr. Ciara Ellis DO Primary Care Provider, Referring P rovider Active Dr. Tito Reyna DO Attending Provider Active Team Status: Active Member Role Status Dates Dr. Ciara Ellis DO Primary Care Provider Active Dr. Tito Reyna DO Attending Provider Active Team Status: Inactive Member Role Status Dates Dr. Ciara Ellis DO Primary Care Provider, Referring P rovider Active Dr. Darek Campos MD Attending Provider Active Team Status: Inactive Member Role Status Dates Dr. Ciara Ellis DO Primary Care Provider Active Dr. Darek Campos MD Attending Provider, Referr ing Provider Active Team Status: Active Member Role Status Dates Dr. Ciara Ellis DO Primary Care Provider Active Dr. Darek Campos MD Attending Pr ovider, Referring Provider, Other Provider Active Team Status: Inactive Member Role Status Dates Dr. Ciara Ellis DO Primary Care Provider, Referring P rovider Active Dr. Stone Orozco MD Attending Provider Active Team Status: Active Member Role Status Dates Dr. Ciara Ellis DO Primary Care Provider Active Dr. Stone Orozco MD Attending Provider, Referrin g Provider Active Team Status: Inactive Member Role Status Dates Dr. Ciara Ellis DO Primary Care Provider Active Dr. Tito Reyna DO Attending Provider Active Team Status: Active Member Role Status Dates Dr. Ciara Ellis DO Primary Care Provider Active Team Status: Inactive Member Role Status Dates Dr. Ciara Ellis DO Primary Care Provider Active Start: October 19, 2024 End: October 19, 2024 Dr. Ciara Ellis DO Attending Provider Active St art: October 19, 2024 End: October 19, 2024 Dr. Ciara Ellis DO Referring Provider Active St art: October 19, 2024 End: October 19, 2024 Team Status: Inactive Member Role Status Dates Dr. Ciara Ellis DO Primary Care Provider Active Start: November 23, 2024 End: November 23, 2024 Dr. Ciara Ellis DO Attending Provider Active St art: November 23, 2024 End: November 23, 2024 Dr. Ciara Ellis DO Referring Provider Active St art: November 23, 2024 End: November 23, 2024 Team Status: Inactive Member Role Status Dates Dr. Ciara Ellis DO Primary Care Provider Active Start: December 10, 2024 End: December 10, 2024 Dr. Ciara Ellis DO Referring Provider Active St art: December 10, 2024 End: December 10, 2024 Dr. Jacoby Khan MD Attending Provider Active Sta rt: December 10, 2024 End: December 10, 2024 Team Status: Inactive Member Role Status Dates Dr. Ciara Ellis DO Primary Care Provider Active Start: December 28, 2024 End: December 28, 2024 Dr. Stone Orozco MD Attending Provider Active Start: December 28, 2024 End: December 28, 2024 Dr. Stone Orozco MD Referring Provider Active Start: December 28, 2024 End: December 28, 2024 Team Status: Inactive Member Role Status Dates Dr. Ciara Ellis DO Primary Care Provider Active Start: February 11, 2025 End: February 11, 2025 Dr. Darek Campos MD Attending Provider Active Start: February 11, 2025 End: February 11, 2025 Dr. Darek Campos MD Referring Provider Active Start: February 11, 2025 End: February 11, 2025 Team Status: Active Member Role/Relationship Status Dates Dr. Ciara Elils DO Primary care physician Active Team Status: Inactive Member Role/Relationship Status Dates Dr. Ciara Ellis DO Primary care physician Active Start: August 05, 2025 End: August 05, 2025 Dr. Stone Orozco MD Attending physician Active Start: August 05, 2025 End: August 05, 2025 Dr. Stone Orozco MD Referring Provider Active Start: August 05, 2025 End: August 05, 2025 Team Status: Inactive Member Role/Relationship Status Dates Dr. Ciara Ellis DO Primary care physician Active Start: August 12, 2025 End: August 12, 2025 Dr. Ciara Ellis DO Referring Provider Active St art: August 12, 2025 End: August 12, 2025 Dr. Stone Orozco MD Attending physician Active Start: August 12, 2025 End: August 12, 2025 Team Status: Active Member Role/Relationship Status Dates Dr. Ciara Ellis DO Primary care physician Active Start: August 12, 2025 Dr. Stone Orozco MD Attending physician Active Start: August 12, 2025 Dr. Stone Orozco MD Referring Provider Active Start: August 12, 2025 Goals (unrecognized section and content) Goals may be documented in a n alternate sectionGoals may be documented in an alternate sectionGoals may be documented in an alternate sectionGoals may be documented in an alternate sectionGoals may be documented in an alternate sectionGoals may be documented in an alternate sectionGoals may be documented in an alternate sectionGoals may be documented in an alternate sectionGoals may be documented in an alternate section INFORMATION SOURCE (unrecogn ized section and content) DATE CREATED AUTHOR 08/17/2025 [facility] FOR RECORDS PERTAINING TO PATIENTS WHO ARE OR HAVE BEEN ENROLLED IN A CHEMICAL DEPENDENCY/SUBSTANCEABUSE PROGRAM, SOME INFORMATION MAY BE OMITTED. This clinical summary was aggregated from multiple sources. Caution should be exercised in using it in the provision of clinical care. This summary normalizes information from multiple sources, and as a consequence, information in this document may materially change the coding, format and clinical context of patient data. In addition, data may be omitted in some cases. CLINICAL DECISIONS SHOULD BE BASED ON THE PRIMARY CLINICAL RECORDS. [employer] provides no warranty or guarantee of the accuracy or completeness of information in this document.
[2025-10-25 14:00] LABS: PTHIN 110 pg/mL (11-61)
[2025-10-25 14:08] LABS: Calcium 10.5 mg/dL (7.6-11.0)
== END | disposition home or self-care (01) ==
LOC: LAB 13:10
PROVIDERS: PCP Family Medicine; Referring Provider Internal Medicine Endocrinology, Diabetes & Metabolism; Visit Provider Internal Medicine Endocrinology, Diabetes & Metabolism
DX: E03.9 Hypothyroidism, unspecified (principal); E21.0 Primary hyperparathyroidism
CPT/HCPCS: 36415; 82310; 83970; 84439; 84443